=== PATIENT | female | born 1990 | race Native Hawaiian/Other Pacific Islander ===

== ENCOUNTER 2017-10-06 01:50 | Inpatient (IN) | payer OTHER ==
--- NOTE | 2017-10-06 02:55 | PD ---
HPI Chief Complaint Right upper quadrant pain for 24 hours Date Seen: Oct 06, 2017 Time Seen: 02:45 Travel History International Travel<30 Days: No Contact w/Intl Traveler<30Days: No Known Affected Area: No History of Present Illness HPI Patient is 26-year-old Syriac female at 19 weeks gestation who presents with 24 hours of right upper quadrant pain, one episode of nausea and vomiting, denies fever, she has never had this type pain or problem for she has never had her appendix or her gallbladder out. Patient has limited Bolivian but describes the pain as sharp knifelike. There is no vaginal bleeding leakage drainage or lower abdominal pain. heart tones in the 140s Weeks Gestation: 19 Para: 0 : 1 History Social History Alcohol Use: No Tobacco Use: No Substance Abuse: No Review of Systems General / Constitutional: No: Fever, Weight Gain, Chills, Other Eyes: No: Diploplia, Blurred Vision, Visual changes, Pain, Photophobia HENT: No: Headaches, Vertigo, Lightheadedness Cardiovascular: No: Irregular Rhythm, Chest Pain or Discomfort, Palpitations, Tachycardia, Syncope, Varicosities, Edema, Cyanosis Respiratory: No: Cough, Short of Breath, Other Gastrointestinal: Nausea, Vomiting, Abdominal Pain, No: Diarrhea Genitourinary: No: Decreased Urinary Output, Oliguria Musculoskeletal: No: Limited ROM, Weakness, Cramping, Edema, Pain Skin: No Rash, No Itching, No Dryness, No Lumps, No Change in Pigmentation, No Change in Nails, No Alopecia, No Lesions Neurologic: No: Weakness, Dizziness, Syncope, Focal Abnormalities, Coordination Problem, Headache, Slurred Speech, Seizures Psychiatric: No: Depression, Suicidal Ideations, Homicidal Ideation Endocrine: No: Heat Intolerance, Cold Intolerance, Polydipsia, Polyuria, Other Physical Exam Narrative GENERAL: Well-nourished, well-developed patient. SKIN: Warm and dry. HEAD: Normocephalic and atraumatic. EYES: No scleral icterus. No injection or drainage. ENT: No nasal drainage noted. Mucous membranes pink. Airway patent. NECK: Supple, trachea midline. No JVD. CARDIOVASCULAR: Regular rate and rhythm without murmurs, gallops, or rubs. RESPIRATORY: Breath sounds equal bilaterally. No accessory muscle use. BREASTS: Bilateral exam showed no masses , no retractions, no nipple discharge. ABDOMEN/GI: Abdomen soft, -tender in the right upper quadrant, no rebound pain, no pain in the lower quadrants only minimal pain in the left upper quadrant and when U push in the left it hurts on the right,, bowel sounds present , no guarding no distention, positive Key sign Gravid to [19-] weeks size Fundal Height: [At umbilicus-] GENITOURINARY: External Genitalia: intact and normal in appearance BUS glands: [-] Cervix: [Patient cervix is very low in the vagina just inside the introitus about 1 inch or so, but is closed and long[this exam was done by the nurse because patient would not allow man to do a genital exam due to amish concerns-] Dilatation: [-0] Effacement: [Thick-] Station: [-3] Membranes: [intact ] Uterine Contractions: [-none] FHT's: 145 EXTREMITIES: No cyanosis or edema. BACK: Nontender without obvious deformity. No CVA tenderness. NEUROLOGICAL: Awake and alert. Motor and sensory grossly within normal limits. Five out of 5 muscle strength in all muscle groups. Normal speech. Data Data Orders Orders Vital Signs (Adult) .ON ADMISSION (10/06/17 02:44) ^ Labor Status (10/06/17 02:44) ^ Non Stress Test (10/06/17 02:44) Cbc No Diff, Includes Plts (10/06/17 02:44) Comprehensive Metabolic Panel (10/06/17 02:44) Uric Acid (10/06/17 02:44) Us Abdomen Gallbladder (10/06/17 ) Labs Laboratory Tests Test 10/06/17 02:25 White Blood Count 9.6 TH/MM3 Red Blood Count 3.82 MIL/MM3 Hemoglobin 11.5 GM/DL Hematocrit 33.3 % Mean Corpuscular Volume 87.3 FL Mean Corpuscular Hemoglobin 30.0 PG Mean Corpuscular Hemoglobin Concent 34.4 % Red Cell Distribution Width 14.3 % Platelet Count 228 TH/MM3 Mean Platelet Volume 8.3 FL Blood Urea Nitrogen 9 MG/DL Creatinine 0.45 MG/DL Random Glucose 87 MG/DL Total Protein 6.6 GM/DL Albumin 2.6 GM/DL Calcium Level 8.6 MG/DL Uric Acid 4.0 MG/DL Alkaline Phosphatase 133 U/L Aspartate Amino Transf (AST/SGOT) 179 U/L Alanine Aminotransferase (ALT/SGPT) 140 U/L Total Bilirubin 0.4 MG/DL Sodium Level 140 MEQ/L Potassium Level 3.7 MEQ/L Chloride Level 103 MEQ/L Carbon Dioxide Level 26.9 MEQ/L Anion Gap 10 MEQ/L Estimat Glomerular Filtration Rate 167 ML/MIN Urine dip on OB ED is negative MDM Interpretation(s) 26-year-old Syriac female at 19 weeks with right upper quadrant pain, elevated liver transaminases, small gallbladder polyp but no stones seen, no obstetric issues heart tones within normal limits Plan Plan to admit observation, check hepatitis profile , GI consultation later today for right upper quadrant pain and elevated liver enzymes Diagnosis Diagnosis: Primary Impression: Continuous right upper quadrant pain Additional Impressions: Elevated liver enzymes 19 weeks gestation of Patient Instructions: General Instructions Departure Forms: Tests/Procedures Bertin Branch II, MD Oct 06, 2017 02:55
[2017-10-06 03:27] LABS: HEMATOCRIT 33.3 % (35.0-46.0); HEMOGLOBIN 11.5 GM/DL (11.6-15.3); MEAN CELL VOLUME 87.3 FL (80.0-100.0); MEAN CORPUSCULAR HGB CONC 34.4 % (32.0-36.0); MEAN PLATELET VOLUME 8.3 FL (7.0-11.0); PLATELET COUNT 228 TH/MM3 (150-450); RED BLOOD COUNT 3.82 MIL/MM3 (4.00-5.30); RED CELL DISTRIBUTION WIDTH 14.3 % (11.6-17.2); WHITE BLOOD COUNT 9.6 TH/MM3 (4.0-11.0)
[2017-10-06 03:56] LABS: ALBUMIN 2.6 GM/DL (3.4-5.0); ALT (GPT) 140 U/L (10-53); AST (GOT) 179 U/L (15-37); BICARBONATE 26.9 MEQ/L (21.0-32.0); BLOOD UREA NITROGEN 9 MG/DL (7-18); CALCIUM 8.6 MG/DL (8.5-10.1); CHLORIDE 103 MEQ/L (98-107); CREATININE 0.45 MG/DL (0.50-1.00); GLOMERULAR FILTRATION RATE 167 ML/MIN (>89); GLUCOSE,RANDOM 87 MG/DL (74-106); SODIUM (NA) 140 MEQ/L (136-145)
--- NOTE | 2017-10-06 03:57 | RADRPT ---
EXAM DATE/TIME: 10/06/2017 03:17 [facility] COMPARISON: No previous studies available for comparison. INDICATIONS : Right upper quadrant pain, nausea and vomiting. MEDICAL HISTORY : . SURGICAL HISTORY : None. ENCOUNTER: Initial ACUITY: 1 day PAIN SCORE: 4/10 LOCATION: Right upper quadrant MEASUREMENTS: LIVER: 16.1 cm length COMMON DUCT: 5 mm RIGHT KIDNEY: 11.3 x 5.1 x 6.1 cm FINDINGS: LIVER: Normal echotexture without focal lesion or ductal dilatation. COMMON DUCT: No intraluminal mass or stone visualized. GALLBLADDER: Small echogenic focus is seen involving the wall of the globe no roots this measures 1 cm in greatest dimension. No shadowing. PANCREAS: The visualized portions are within normal limits. RIGHT KIDNEY: No evidence of hydronephrosis, stone, or mass. CONCLUSION: 1. Small polyp involving the gallbladder. Curtis Henry Jr., MD on October 06, 2017 at 3:53 Board Certified Radiologist. This report was verified electronically.
[2017-10-06 03:58] LABS: ALKALINE PHOSPHATASE 133 U/L (45-117); TOTAL BILIRUBIN ADULT 0.4 MG/DL (0.2-1.0); TOTAL PROTEIN 6.6 GM/DL (6.4-8.2)
[2017-10-06] MEDS ORDERED: ONDANSETRON HCL 4 MG/2 ML VIAL IV PUSH PRN (04:30)
[2017-10-06] MEDS ORDERED: SODIUM CHLORIDE 0.9% FLUSH 10 ML FLUSH IV FLUSH PRN (04:30)
--- NOTE | 2017-10-06 04:35 | HHI.HP ---
History & Physical H&P OB ED Note (Detail) Patient Name: Ward Mckinney Unit Number: [id number] Date of : 1990 Patient Status: Admitted Inpatient (obs) Attending Doctor: Bertin Branch II, MD HPI HPI Chief Complaint Right upper quadrant pain for 24 hours Date Seen: Oct 06, 2017 Time Seen: 02:45 Travel History International Travel<30 Days: No Contact w/Intl Traveler<30Days: No Known Affected Area: No History of Present Illness HPI Patient is 26-year-old Lithuanian female at 19 weeks gestation who presents with 24 hours of right upper quadrant pain, one episode of nausea and vomiting, denies fever, she has never had this type pain or problem for she has never had her appendix or her gallbladder out. Patient has limited Niuean but describes the pain as sharp knifelike. There is no vaginal bleeding leakage drainage or lower abdominal pain. heart tones in the 140s Weeks Gestation: 19 Para: 0 : 1 History (Limited) History Social History Alcohol Use: No Tobacco Use: No Substance Abuse: No Allergies-Medications Allergies-Medications ROS Review of Systems General / Constitutional: No: Fever, Weight Gain, Chills, Other Eyes: No: Diploplia, Blurred Vision, Visual changes, Pain, Photophobia HENT: No: Headaches, Vertigo, Lightheadedness Cardiovascular: No: Irregular Rhythm, Chest Pain or Discomfort, Palpitations, Tachycardia, Syncope, Varicosities, Edema, Cyanosis Respiratory: No: Cough, Short of Breath, Other Gastrointestinal: Nausea, Vomiting, Abdominal Pain, No: Diarrhea Genitourinary: No: Decreased Urinary Output, Oliguria Musculoskeletal: No: Limited ROM, Weakness, Cramping, Edema, Pain Skin: No Rash, No Itching, No Dryness, No Lumps, No Change in Pigmentation, No Change in Nails, No Alopecia, No Lesions Neurologic: No: Weakness, Dizziness, Syncope, Focal Abnormalities, Coordination Problem, Headache, Slurred Speech, Seizures Psychiatric: No: Depression, Suicidal Ideations, Homicidal Ideation Endocrine: No: Heat Intolerance, Cold Intolerance, Polydipsia, Polyuria, Other Physical Exam Physical Exam Narrative GENERAL: Well-nourished, well-developed patient. SKIN: Warm and dry. HEAD: Normocephalic and atraumatic. EYES: No scleral icterus. No injection or drainage. ENT: No nasal drainage noted. Mucous membranes pink. Airway patent. NECK: Supple, trachea midline. No JVD. CARDIOVASCULAR: Regular rate and rhythm without murmurs, gallops, or rubs. RESPIRATORY: Breath sounds equal bilaterally. No accessory muscle use. BREASTS: Bilateral exam showed no masses , no retractions, no nipple discharge. ABDOMEN/GI: Abdomen soft, -tender in the right upper quadrant, no rebound pain, no pain in the lower quadrants only minimal pain in the left upper quadrant and when U push in the left it hurts on the right,, bowel sounds present , no guarding no distention, positive Key sign Gravid to [19-] weeks size Fundal Height: [At umbilicus-] GENITOURINARY: External Genitalia: intact and normal in appearance BUS glands: [-] Cervix: [Patient cervix is very low in the vagina just inside the introitus about 1 inch or so, but is closed and long[this exam was done by the nurse because patient would not allow man to do a genital exam due to zoroastrian concerns-] Dilatation: [-0] Effacement: [Thick-] Station: [-3] Membranes: [intact ] Uterine Contractions: [-none] FHT's: 145 EXTREMITIES: No cyanosis or edema. BACK: Nontender without obvious deformity. No CVA tenderness. NEUROLOGICAL: Awake and alert. Motor and sensory grossly within normal limits. Five out of 5 muscle strength in all muscle groups. Normal speech. Data Data Data Orders Orders Vital Signs (Adult) .ON ADMISSION (10/06/17 02:44) ^ Labor Status (10/06/17 02:44) ^ Non Stress Test (10/06/17 02:44) Cbc No Diff, Includes Plts (10/06/17 02:44) Comprehensive Metabolic Panel (10/06/17 02:44) Uric Acid (10/06/17 02:44) Us Abdomen Gallbladder (10/06/17 ) Labs Laboratory Tests Test 10/06/17 02:25 White Blood Count 9.6 TH/MM3 Red Blood Count 3.82 MIL/MM3 Hemoglobin 11.5 GM/DL Hematocrit 33.3 % Mean Corpuscular Volume 87.3 FL Mean Corpuscular Hemoglobin 30.0 PG Mean Corpuscular Hemoglobin Concent 34.4 % Red Cell Distribution Width 14.3 % Platelet Count 228 TH/MM3 Mean Platelet Volume 8.3 FL Blood Urea Nitrogen 9 MG/DL Creatinine 0.45 MG/DL Random Glucose 87 MG/DL Total Protein 6.6 GM/DL Albumin 2.6 GM/DL Calcium Level 8.6 MG/DL Uric Acid 4.0 MG/DL Alkaline Phosphatase 133 U/L Aspartate Amino Transf (AST/SGOT) 179 U/L Alanine Aminotransferase (ALT/SGPT) 140 U/L Total Bilirubin 0.4 MG/DL Sodium Level 140 MEQ/L Potassium Level 3.7 MEQ/L Chloride Level 103 MEQ/L Carbon Dioxide Level 26.9 MEQ/L Anion Gap 10 MEQ/L Estimat Glomerular Filtration Rate 167 ML/MIN Urine dip on OB ED is negative MDM MDM Interpretation(s) 26-year-old Lithuanian female at 19 weeks with right upper quadrant pain, elevated liver transaminases, small gallbladder polyp but no stones seen, no obstetric issues heart tones within normal limits Plan Plan to admit observation, check hepatitis profile , GI consultation later today for right upper quadrant pain and elevated liver enzymes Diagnosis Diagnosis: Primary Impression: Continuous right upper quadrant pain Additional Impressions: Elevated liver enzymes 19 weeks gestation of Patient Instructions: General Instructions Departure Forms: Tests/Procedures Bertin Branch II, MD Oct 06, 2017 02:55 Bertin Branch II, MD Oct 06, 2017 04:35
[2017-10-06] MEDS: cefTRIAXone INJ 1,000 MG in SODIUM CHLORIDE 0.9% INJ 100 ML IV SCH (05:02)
[2017-10-06 05:04] VITALS: RESP 18
[2017-10-06 06:15] VITALS: RESP 16
[2017-10-06] MEDS: SODIUM CHLORIDE 0.9% FLUSH 10 ML FLUSH IV FLUSH SCH ×2 (09:00→21:00)
[2017-10-06 09:05] VITALS: BP 94/58; PULSE 81
[2017-10-06 09:17] VITALS: RESP 16; TEMP 98
[2017-10-06] MEDS ORDERED: DEXTROSE 5%-LACTATED RING INJ 1,000 ML IV SCH (11:45)
--- NOTE | 2017-10-06 14:15 | PD.CONS ---
HPI History of Present Illness This is a 26 year old F with no significant PMH, who is currently 19 weeks gestation, first . Pt came to the ER yesterday with complaints of RUQ abdominal pain that she states came on suddenly. Pt describes pain as sharp and states it is fairly constant. Pain was worse throughout the night and she was unable to sleep. Denies pain in relation to food. Had one isolated episode of nausea with emesis yesterday, denies any nausea at this time. Denies hematemesis and coffee ground emesis. Has never seen a GI doctor, denies ever having EGD or colonoscopy. Currently LFTs are elevated, our service has been consulted to further evaluate. Pt denies history of liver issues, denies taking OTC medications including Tylenol, denies taking herbal supplements. Denies ETOH prior to and illicit drug use. Denies family history of liver issues. Denies sick contacts, fever, chills. US gallbladder --> Small polyp involving the gallbladder. Current LFTs AST-179 ALT-140 Alk phos-133 T bili-0.4. (Radha Jack) PFSH Past Medical History Denies (Radha Jack) Uncoded Allergies: no known allergy (Allergy, Unknown, 10/06/17) Social History Denies ETOH Denies smoking Denies illicit drug use (Radha Jack) Review of Systems Gastrointestinal: COMPLAINS OF: Abdominal pain, Constipation, Nausea, Vomiting , DENIES: Black stools, Bloody stools, Diarrhea, Difficulty Swallowing, Odynophagia, Swelling of Abdomen, Heartburn, Hematemesis (Radha Jack) GI Exam Vitals I&O Vital Signs Date Time Temp Pulse Resp B/P (MAP) Pulse Ox O2 Delivery O2 Flow Rate FiO2 10/06/17 09:17 98.0 16 10/06/17 09:05 81 94/58 (70) 10/06/17 06:15 16 10/06/17 05:04 18 Imaging Last Impressions Gall Bladder Ultrasound 10/06/17 0000 Signed Impressions: Service Date/Time: September 03:17 - CONCLUSION: 1. Small polyp involving the gallbladder. Curtis Henry Jr., MD Laboratory Test 10/06/17 02:05 3/15/18 02:25 10/06/17 04:35 Urine Opiates Screen NEG Urine Barbiturates Screen NEG Urine Amphetamines Screen NEG Urine Benzodiazepines Screen NEG Urine Cocaine Screen NEG Urine Cannabinoids Screen NEG White Blood Count 9.6 TH/MM3 Red Blood Count 3.82 MIL/MM3 Hemoglobin 11.5 GM/DL Hematocrit 33.3 % Mean Corpuscular Volume 87.3 FL Mean Corpuscular Hemoglobin 30.0 PG Mean Corpuscular Hemoglobin Concent 34.4 % Red Cell Distribution Width 14.3 % Platelet Count 228 TH/MM3 Mean Platelet Volume 8.3 FL Blood Urea Nitrogen 9 MG/DL Creatinine 0.45 MG/DL Random Glucose 87 MG/DL Total Protein 6.6 GM/DL Albumin 2.6 GM/DL Calcium Level 8.6 MG/DL Uric Acid 4.0 MG/DL Alkaline Phosphatase 133 U/L Aspartate Amino Transf (AST/SGOT) 179 U/L Alanine Aminotransferase (ALT/SGPT) 140 U/L Total Bilirubin 0.4 MG/DL Sodium Level 140 MEQ/L Potassium Level 3.7 MEQ/L Chloride Level 103 MEQ/L Carbon Dioxide Level 26.9 MEQ/L Anion Gap 10 MEQ/L Estimat Glomerular Filtration Rate 167 ML/MIN Hepatitis A IgM Antibody NONREACTIVE Hepatitis B Surface Antigen NONREACTIVE Physical Examination HEENT: Normocephalic; atraumatic CHEST: Even/unlabored CARDIAC: RRR ABDOMEN: Soft, nondistended, right sided abdominal tenderness at level of umbilicus, bowel sounds active EXTREMITIES: No clubbing, cyanosis, or edema. SKIN: Normal; no rash; no jaundice. CLIPPER AUTOMATIC: No focal deficits; alert and oriented times three. (Radha Jack) Assessment and Plan Plan Assessment: - Transaminitis- Current LFTs as follows AST-179 ALT-140 Alk phos-133 T bili-0.4 Pt denies history of liver issues, family history of liver issues, ETOH prior to , OTC medication and supplements including Tylenol, illicit drug use, sick contacts, fever, chills, high risk sexual behaviors. - RUQ pain- negative Key's- pain more right sided abdomen at level of umbilicus. US gallbladder --> Small polyp involving the gallbladder - 19 weeks gestation- denies complications in Pt will likely need cholecystectomy after delivery. Plan: KARLENE ASMA AMA Hepatitis panel Ceruloplasmin Alpha-1 antitrypsin Celiac control panel tester LFTs Further recommendations based on findings of above Pt has been seen and examined by myself and Dr. Stephens and this note is written on his behalf (Radha Jack) Physician Comments Agree with above assessment and plan. Will follow up with you. Thank you. (Melquiades Stephens MD) Radha Jack Oct 06, 2017 14:15 Melquiades Stephens MD Oct 06, 2017 21:14
[2017-10-06 15:31] LABS: % SATURATION IRON PROFILE 11.7 % (20-50); IRON (FE) 41 MCG/DL (50-170); TOTAL IRON BINDING CAPACITY 350 MCG/DL (250-450)
[2017-10-06 15:34] LABS: FERRITIN 55 NG/ML (8-252)
[2017-10-06 19:56] VITALS: BP 103/54; PULSE 92
[2017-10-06 20:00] VITALS: RESP 18; TEMP 98.1
[2017-10-07] MEDS: cefTRIAXone INJ 1,000 MG in SODIUM CHLORIDE 0.9% INJ 100 ML IV SCH (04:30)
[2017-10-07 05:16] VITALS: BP 89/52; PULSE 80
[2017-10-07 05:24] VITALS: RESP 18; TEMP 98.2
[2017-10-07 06:26] LABS: AUTOMATED NEUTROPHIL # 4.5 TH/MM3 (1.8-7.7); BASOPHIL % 0.3 % (0.0-2.0); EOSINOPHIL # 0.2 TH/MM3 (0-0.4); EOSINOPHIL % 2.4 % (0.0-4.0); HEMATOCRIT 30.4 % (35.0-46.0); HEMOGLOBIN 10.4 GM/DL (11.6-15.3); LYMPHOCYTE # 1.9 TH/MM3 (1.0-4.8); MEAN CELL VOLUME 88.6 FL (80.0-100.0); MEAN CORPUSCULAR HEMOGLOBIN 30.2 PG (27.0-34.0); MEAN CORPUSCULAR HGB CONC 34.1 % (32.0-36.0); MEAN PLATELET VOLUME 8.1 FL (7.0-11.0); MONO % 6.7 % (0.0-8.0); MONOCYTE # 0.5 TH/MM3 (0-0.9); NEUT % 63.6 % (16.0-70.0); PLATELET COUNT 209 TH/MM3 (150-450); RED BLOOD COUNT 3.43 MIL/MM3 (4.00-5.30); RED CELL DISTRIBUTION WIDTH 14.1 % (11.6-17.2)
[2017-10-07 06:52] LABS: ALBUMIN 2.2 GM/DL (3.4-5.0); ALT (GPT) 120 U/L (10-53); AST (GOT) 60 U/L (15-37); BLOOD UREA NITROGEN 6 MG/DL (7-18); CALCIUM 8.1 MG/DL (8.5-10.1); CHLORIDE 106 MEQ/L (98-107); CREATININE 0.41 MG/DL (0.50-1.00); GLOMERULAR FILTRATION RATE 186 ML/MIN (>89); GLUCOSE,RANDOM 83 MG/DL (74-106); SODIUM (NA) 139 MEQ/L (136-145)
[2017-10-07 06:54] LABS: ALKALINE PHOSPHATASE 106 U/L (45-117); TOTAL BILIRUBIN ADULT 0.2 MG/DL (0.2-1.0); TOTAL PROTEIN 5.8 GM/DL (6.4-8.2)
[2017-10-07 07:57] VITALS: BP 93/53; PULSE 81
[2017-10-07 08:00] VITALS: RESP 16; TEMP 97.8
--- NOTE | 2017-10-07 09:20 | HHI.GIFU ---
Subjective Remarks Sitting on side of the bed at her bedside Awake alert answers questions appropriately States abdominal pain is feeling better, Afebrile (Nicole Wright) Objective Vitals I&O Vital Signs Date Time Temp Pulse Resp B/P (MAP) Pulse Ox O2 Delivery O2 Flow Rate FiO2 10/07/17 08:00 97.8 16 10/07/17 07:57 81 93/53 (66) 10/07/17 05:24 18 10/07/17 05:24 98.2 10/07/17 05:16 80 89/52 (64) 10/06/17 20:00 98.1 18 10/06/17 19:56 92 103/54 (70) 10/06/17 09:17 98.0 16 Laboratory Laboratory Tests Test 10/06/17 16:08 10/07/17 06:05 White Blood Count 7.0 Red Blood Count 3.43 Hemoglobin 10.4 Hematocrit 30.4 Mean Corpuscular Volume 88.6 Mean Corpuscular Hemoglobin 30.2 Mean Corpuscular Hemoglobin Concent 34.1 Red Cell Distribution Width 14.1 Platelet Count 209 Mean Platelet Volume 8.1 Neutrophils (%) (Auto) 63.6 Lymphocytes (%) (Auto) 27.0 Monocytes (%) (Auto) 6.7 Eosinophils (%) (Auto) 2.4 Basophils (%) (Auto) 0.3 Neutrophils # (Auto) 4.5 Lymphocytes # (Auto) 1.9 Monocytes # (Auto) 0.5 Eosinophils # (Auto) 0.2 Basophils # (Auto) 0.0 CBC Comment DIFF FINAL Differential Comment Blood Urea Nitrogen 6 Creatinine 0.41 Random Glucose 83 Total Protein 5.8 Albumin 2.2 Calcium Level 8.1 Alkaline Phosphatase 106 Aspartate Amino Transf (AST/SGOT) 60 Alanine Aminotransferase (ALT/SGPT) 120 Total Bilirubin 0.2 Sodium Level 139 Potassium Level 3.6 Chloride Level 106 Carbon Dioxide Level 24.0 Anion Gap 9 Estimat Glomerular Filtration Rate 186 Imaging Last Impressions Gall Bladder Ultrasound 10/06/17 0000 Signed Impressions: Service Date/Time: September 03:17 - CONCLUSION: 1. Small polyp involving the gallbladder. Curtis Henry Jr., MD Physical Exam HEENT: Pupils round and reactive to light; normocephalic; atraumatic; no obvious icterus NECK: Neck is supple, CHEST: Chest is clear out rhonchi or wheezing CARDIAC: Regular rate and rhythm ABDOMEN: Soft, nondistended, minimal right upper quadrant and gastric tenderness; no hepatosplenomegaly; bowel sounds are present in all four quadrants. EXTREMITIES: No clubbing, cyanosis, or edema. SKIN: Normal; no rash; no jaundice. EXPERIENCE SPECIALIST: No focal deficits; alert and oriented times three. (Nicole Wright) Assessment and Plan Plan Assessment: - Transaminitis- Current LFTs as follows AST-179 ALT-140 Alk phos-133 T bili-0.4 Pt denies history of liver issues, family history of liver issues, ETOH prior to , OTC medication and supplements including Tylenol, illicit drug use, sick contacts, fever, chills, high risk sexual behaviors. - RUQ pain- negative Key's- pain more right sided abdomen at level of umbilicus. US gallbladder --> Small polyp involving the gallbladder - 19 weeks gestation- denies complications in Consider cholecystectomy after delivery if symptoms can be controlled 10/07/17. LFTs decreased, AST 60, ALT 120, alkaline phosphatase back to normal range 106, hemoglobin 10.4. Abdominal pain right upper quadrant and gastric region improved still some minimal soreness. Discussed the monitoring of her symptoms, polyp found in her gallbladder. If symptoms persist will need to follow as outpatient Plan: Monitor anemia possible secondary to patient's Monitor labs LFTs patient's symptoms of right upper quadrant pain nausea, vomiting KARLENE, ASMA, AMA pending Hepatitis panel negative Ceruloplasmin pending Alpha-1 antitrypsin pending Celiac panel pending Further recommendations based on findings of above Pt has been seen and examined by myself and Dr. Stephens and this note is written on his behalf (Nicole Wright) Physician Comments As above, stable at the current time. Agree with DC and follow up in the office. (Melquiades Stephens MD) Nicole Wright Oct 07, 2017 09:20 Melquiades Stephens MD Oct 07, 2017 11:15
--- NOTE | 2017-10-07 10:05 | PD.OB.ANTE ---
Subjective Interval History Patient sitting at the side of bed. Abdominal pain is much better. She has been afebrile overnight. Has eaten food without issues. Would like to go home. Antepartum ROS: Reports: movement normal, Denies: Loss of fluid, Vaginal bleeding, Contractions Objective Vital Signs Vital Signs Date Time Temp Pulse Resp B/P (MAP) Pulse Ox O2 Delivery O2 Flow Rate FiO2 10/07/17 08:00 97.8 16 10/07/17 07:57 81 93/53 (66) 10/07/17 05:24 18 10/07/17 05:24 98.2 10/07/17 05:16 80 89/52 (64) 10/06/17 20:00 98.1 18 10/06/17 19:56 92 103/54 (70) Lab & Micro Results Test 10/06/17 16:08 10/07/17 06:05 White Blood Count 7.0 TH/MM3 Red Blood Count 3.43 MIL/MM3 Hemoglobin 10.4 GM/DL Hematocrit 30.4 % Mean Corpuscular Volume 88.6 FL Mean Corpuscular Hemoglobin 30.2 PG Mean Corpuscular Hemoglobin Concent 34.1 % Red Cell Distribution Width 14.1 % Platelet Count 209 TH/MM3 Mean Platelet Volume 8.1 FL Neutrophils (%) (Auto) 63.6 % Lymphocytes (%) (Auto) 27.0 % Monocytes (%) (Auto) 6.7 % Eosinophils (%) (Auto) 2.4 % Basophils (%) (Auto) 0.3 % Neutrophils # (Auto) 4.5 TH/MM3 Lymphocytes # (Auto) 1.9 TH/MM3 Monocytes # (Auto) 0.5 TH/MM3 Eosinophils # (Auto) 0.2 TH/MM3 Basophils # (Auto) 0.0 TH/MM3 CBC Comment DIFF FINAL Differential Comment Blood Urea Nitrogen 6 MG/DL Creatinine 0.41 MG/DL Random Glucose 83 MG/DL Total Protein 5.8 GM/DL Albumin 2.2 GM/DL Calcium Level 8.1 MG/DL Alkaline Phosphatase 106 U/L Aspartate Amino Transf (AST/SGOT) 60 U/L Alanine Aminotransferase (ALT/SGPT) 120 U/L Total Bilirubin 0.2 MG/DL Sodium Level 139 MEQ/L Potassium Level 3.6 MEQ/L Chloride Level 106 MEQ/L Carbon Dioxide Level 24.0 MEQ/L Anion Gap 9 MEQ/L Estimat Glomerular Filtration Rate 186 ML/MIN Physical Exam GENERAL: Well-nourished, well-developed patient. CARDIOVASCULAR: Regular rate and rhythm without murmurs, gallops, or rubs. RESPIRATORY: Breath sounds equal bilaterally. No accessory muscle use. ABDOMEN/GI: Abdomen soft, non-tender. EXTREMITIES: No cyanosis or edema, non-tender, without signs of DVT. Assessment and Plan Problem List: (1) 19 weeks gestation of ICD Codes: Z3A.19 - 19 weeks gestation of Status: Acute (2) Right upper quadrant abdominal pain ICD Codes: R10.11 - Right upper quadrant pain (3) Elevated liver enzymes ICD Codes: R74.8 - Abnormal levels of other serum enzymes Status: Acute Assessment and Plan 26-year-old Occitan female at 19 weeks gestation presented with 24 hours of right upper quadrant pain, one episode of nausea and vomiting, and elevated liver enzymes. 1. IUP -FHTs reassuring in the 140's this am -Continue routine care -Discussed with patient and significant other about the [facility] 2. RUQ Abdominal Pain -Resolved - able to eat and drink without pain, nausea, or vomiting -Hepatitis panel negative -GI on board -Specialized labs pending -Patient to follow up with GI as an outpatient in 2-4 weeks 3. Elevated Transaminases -AST/ALT decreased from 179/140 on 10/06/17 to 60/120 on 10/07/17 -Discussed staying adequately hydrated Plan to discharge home today Seen and examined with Dr. Solomon and Charlene Marshall MD Oct 07, 2017 10:05
--- NOTE | 2017-10-07 10:33 | HHI.DCPOC ---
Discharge Care Plan Diagnosis: (1) Elevated liver enzymes (2) 19 weeks gestation of (3) Right upper quadrant abdominal pain Report Symptoms to Your Doctor -Temperature above 100.5 degrees -Redness, of incision or excessive or foul smelling drainage -Unusual pain or calf pain -Increased vaginal bleeding -Painful or difficulty urinating -Feelings of extreme sadness or anxiety after 2 weeks Goals to Promote Your Health * To prevent worsening of your condition and complications * To maintain your health at the optimal level Directions to Meet Your Goals Take your medications as prescribed Follow your dietary instruction Follow activity as directed Ensure plenty of rest for recovery Drink fluids for hydration Keep your appointments as scheduled Take your immunizations and boosters as scheduled If your symptoms worsen call your PCP, if no PCP go to Urgent Care Center or Emergency Room Smoking is Dangerous to Your Health. Avoid second hand smoke Call the 24-hour crisis hotline for domestic abuse at Charlene Diaz MD Oct 07, 2017 10:33
[2017-10-08 13:13] LABS: ALPHA-1-ANTITRYPSIN 185 mg/dL (100 - 190)
[2017-10-08 14:08] LABS: SMOOTH MUSCLE TOTAL AUTOABS Negative (Negative)
[2017-10-09 17:52] LABS: CERULOPLASMIN 49 mg/dL (18-53)
[2017-10-10 15:53] LABS: ENDOMYSIAL AB SCREEN ND (NEGATIVE); ENDOMYSIAL AB TITER ND (<1:5)
[2017-10-11 23:53] LABS: MITOCHONDRIAL ABS LESS THAN 20.0 U (<=20.0)
== END 2017-10-07 11:02 | disposition home or self-care (01) | DRG 781 ==
LOC: HOBED 01:50 → INTOOBSV 04:15 → OBSVTOIN 04:15 → H2EA 04:15 → OBSVTOIN 15:13
PROVIDERS: ADMIT Obstetrics & Gynecology Maternal & Fetal Medicine; ATTEND Obstetrics & Gynecology Maternal & Fetal Medicine
DX: O26.892 Other specified pregnancy related conditions, second trimester (principal); D64.9 Anemia, unspecified; R10.11 Right upper quadrant pain; R74.8 Abnormal levels of other serum enzymes; K82.4 Cholesterolosis of gallbladder; O99.012 Anemia complicating pregnancy, second trimester; R74.0 Nonspecific elevation of levels of transaminase and lactic acid dehydrogenase [LDH]; Z3A.19 19 weeks gestation of pregnancy
CPT/HCPCS: 76705; 80053; 80074; 80307; 82103; 82390; 82728; 82784; 83516; 83520; 83540; 83550; 83690; 84550; 85025; 85027; 86038; 86255; G0481; J0696

== ENCOUNTER 2017-10-10 00:32 | Observation (INO) | payer OTHER ==
[2017-10-10] VITALS (13 sets, daily range): BP systolic 89–102; BP diastolic 43–56; PULSE 18–77; RESP 16–18; TEMP 97.9–98.7
[~2017-10-10] VITALS: Ht 165.1 cm; Wt 82.0 kg
--- NOTE | 2017-10-10 01:58 | HHI.HP ---
History & Physical H&P Patient Name: Ward Mckinney Unit Number: [id number] Date of : 1990 Patient Status: Discharged Inpatient (obs) Attending Doctor: Bertin Branch II, MD History & Physical History & Physical H&P OB ED Note (Detail) Patient Name: Ward Mckinney Unit Number: [id number] Date of : 1990 Patient Status: Admitted Inpatient (obs) Attending Doctor: Bertin Branch II, MD HPI HPI Chief Complaint Right upper quadrant pain for 24 hours Date Seen: Oct 06, 2017 Time Seen: 02:45 Travel History International Travel<30 Days: No Contact w/Intl Traveler<30Days: No Known Affected Area: No History of Present Illness HPI Patient is 26-year-old French female at 20 weeks gestation who presents with 24 hours of right upper quadrant pain, patient was here 4 days ago was admitted seen by GI who katharina a bunch of lab. Hepatitis profile negative, her transaminases were elevated on admission and then went down the next day, she had a gallbladder polyp small otherwise nothing else seen their assessment was transaminitis and consider cholecystectomy after delivery of symptoms can be controlled unfortunately her symptoms are not controlled she is returned tonight with worsening right upper quadrant pain, denies fever, she has never had this type pain or problem for she has never had her appendix or her gallbladder out. Patient has limited Upper Sorbian but describes the pain as sharp knifelike. There is no vaginal bleeding leakage drainage or lower abdominal pain. heart tones in the 140s Weeks Gestation: 19 Para: 0 : 1 History (Limited) History Social History Alcohol Use: No Tobacco Use: No Substance Abuse: No Allergies-Medications Allergies-Medications ROS Review of Systems General / Constitutional: No: Fever, Weight Gain, Chills, Other Eyes: No: Diploplia, Blurred Vision, Visual changes, Pain, Photophobia HENT: No: Headaches, Vertigo, Lightheadedness Cardiovascular: No: Irregular Rhythm, Chest Pain or Discomfort, Palpitations, Tachycardia, Syncope, Varicosities, Edema, Cyanosis Respiratory: No: Cough, Short of Breath, Other Gastrointestinal: Nausea, Vomiting, Abdominal Pain, No: Diarrhea Genitourinary: No: Decreased Urinary Output, Oliguria Musculoskeletal: No: Limited ROM, Weakness, Cramping, Edema, Pain Skin: No Rash, No Itching, No Dryness, No Lumps, No Change in Pigmentation, No Change in Nails, No Alopecia, No Lesions Neurologic: No: Weakness, Dizziness, Syncope, Focal Abnormalities, Coordination Problem, Headache, Slurred Speech, Seizures Psychiatric: No: Depression, Suicidal Ideations, Homicidal Ideation Endocrine: No: Heat Intolerance, Cold Intolerance, Polydipsia, Polyuria, Other Physical Exam Physical Exam Narrative GENERAL: Well-nourished, well-developed patient. SKIN: Warm and dry. HEAD: Normocephalic and atraumatic. EYES: No scleral icterus. No injection or drainage. ENT: No nasal drainage noted. Mucous membranes pink. Airway patent. NECK: Supple, trachea midline. No JVD. CARDIOVASCULAR: Regular rate and rhythm without murmurs, gallops, or rubs. RESPIRATORY: Breath sounds equal bilaterally. No accessory muscle use. BREASTS: Bilateral exam showed no masses , no retractions, no nipple discharge. ABDOMEN/GI: Abdomen soft, -tender in the right upper quadrant, no rebound pain, no pain in the lower quadrants only minimal pain in the left upper quadrant and when U push in the left it hurts on the right,, bowel sounds present , no guarding no distention, positive Key sign Gravid to [19-] weeks size Fundal Height: [At umbilicus-] GENITOURINARY: External Genitalia: intact and normal in appearance BUS glands: [-] Cervix: [Patient cervix is very low in the vagina just inside the introitus about 1 inch or so, but is closed and long[this exam was done by the nurse because patient would not allow man to do a genital exam due to jehovah's witness concerns-] Dilatation: [-0] Effacement: [Thick-] Station: [-3] Membranes: [intact ] Uterine Contractions: [-none] FHT's: 145 EXTREMITIES: No cyanosis or edema. BACK: Nontender without obvious deformity. No CVA tenderness. NEUROLOGICAL: Awake and alert. Motor and sensory grossly within normal limits. Five out of 5 muscle strength in all muscle groups. Normal speech. Data Data Data Orders Orders Vital Signs (Adult) .ON ADMISSION (10/06/17 02:44) ^ Labor Status (10/06/17 02:44) ^ Non Stress Test (10/06/17 02:44) Cbc No Diff, Includes Plts (10/06/17 02:44) Comprehensive Metabolic Panel (10/06/17 02:44) Uric Acid (10/06/17 02:44) Us Abdomen Gallbladder (10/06/17 ) Labs Labo MDM MDM Interpretation(s) 26-year-old French female at 20 weeks with right upper quadrant pain, elevated liver transaminases, small gallbladder polyp but no stones seen, no obstetric issues heart tones within normal limits Plan Plan to admit observation, , GI consultation later today for right upper quadrant pain and elevated liver enzymes Diagnosis Diagnosis: Primary Impression: Continuous right upper quadrant pain Additional Impressions: Elevated liver enzymes 20 weeks gestation of Patient Instructions: General Instructions Departure Forms: Tests/Procedures Bertin Branch II, MD Oct 10, 2017 02:55 Bertin Branch II, MD Oct 06, 2017 04:35 Bertin Branch II, MD Oct 10, 2017 01:58
[2017-10-10] MEDS ORDERED: SODIUM CHLORIDE 0.9% FLUSH 10 ML FLUSH IV FLUSH PRN (02:00)
[2017-10-10] MEDS ORDERED: ONDANSETRON HCL 4 MG/2 ML VIAL IV PUSH PRN (02:00)
[2017-10-10] MEDS ORDERED: MORPHINE SULFATE 4 MG/ML INJ IV PUSH PRN (02:15)
[2017-10-10] MEDS: SODIUM CHLORIDE 0.9% FLUSH 10 ML FLUSH IV FLUSH SCH ×2 (02:18→21:00)
[2017-10-10 02:28] LABS: AUTOMATED NEUTROPHIL # 6.4 TH/MM3 (1.8-7.7); BASOPHIL % 0.3 % (0.0-2.0); EOSINOPHIL # 0.1 TH/MM3 (0-0.4); HEMATOCRIT 31.7 % (35.0-46.0); HEMOGLOBIN 10.8 GM/DL (11.6-15.3); LYMPH % 18.9 % (9.0-44.0); LYMPHOCYTE # 1.7 TH/MM3 (1.0-4.8); MEAN CELL VOLUME 88.5 FL (80.0-100.0); MEAN CORPUSCULAR HEMOGLOBIN 30.2 PG (27.0-34.0); MEAN CORPUSCULAR HGB CONC 34.1 % (32.0-36.0); MEAN PLATELET VOLUME 8.7 FL (7.0-11.0); MONO % 8.4 % (0.0-8.0); MONOCYTE # 0.8 TH/MM3 (0-0.9); NEUT % 71.4 % (16.0-70.0); PLATELET COUNT 229 TH/MM3 (150-450); RED BLOOD COUNT 3.58 MIL/MM3 (4.00-5.30); RED CELL DISTRIBUTION WIDTH 13.6 % (11.6-17.2); WHITE BLOOD COUNT 8.9 TH/MM3 (4.0-11.0)
[2017-10-10 02:46] LABS: BACTERIA, URINE RARE /hpf; BILIRUBIN, URINE NEG (NEG); BLOOD, URINE NEG (NEG); CALCIUM OXALATE CRYSTALS,URINE RARE /hpf; GLUCOSE,URINE NEG (NEG); KETONE, URINE NEG (NEG); MUCUS URINE FEW /lpf (OCC); NITRITE,URINE NEG (NEG); SQUAMOUS EPITHELIAL CELL URINE 3 /hpf (0-5); URINE COLOR DARK-YELLOW (YELLW/STRAW); URINE LEUKOCYTE ESTERASE NEG (NEG)
[2017-10-10 02:47] LABS: ALBUMIN 2.6 GM/DL (3.4-5.0); AST (GOT) 111 U/L (15-37); BICARBONATE 24.8 MEQ/L (21.0-32.0); BLOOD UREA NITROGEN 7 MG/DL (7-18); CALCIUM 8.6 MG/DL (8.5-10.1); CHLORIDE 104 MEQ/L (98-107); CREATININE 0.55 MG/DL (0.50-1.00); GLOMERULAR FILTRATION RATE 133 ML/MIN (>89); GLUCOSE,RANDOM 96 MG/DL (74-106); SODIUM (NA) 138 MEQ/L (136-145)
[2017-10-10 02:50] LABS: ALKALINE PHOSPHATASE 121 U/L (45-117); ALT (GPT) 106 U/L (10-53); TOTAL BILIRUBIN ADULT 0.4 MG/DL (0.2-1.0); TOTAL PROTEIN 6.7 GM/DL (6.4-8.2)
[2017-10-10] MEDS: LACTATED RINGER'S 1000 ML INJ 1,000 ML IV SCH ×3 (09:48→21:10)
--- NOTE | 2017-10-10 11:23 | RADRPT ---
EXAM DATE/TIME: 10/10/2017 10:23 [facility] COMPARISON: No previous studies available for comparison. INDICATIONS : Right upper quadrant pain. MEDICAL HISTORY : . SURGICAL HISTORY : None. ENCOUNTER: Initial ACUITY: 2 days PAIN SCORE: 2/10 LOCATION: Right upper quadrant MEASUREMENTS: LIVER: 14.8 cm length COMMON DUCT: 3 mm RIGHT KIDNEY: 12.0 x 5.0 x 5.0 cm FINDINGS: LIVER: Normal echotexture without focal lesion or ductal dilatation. COMMON DUCT: No intraluminal mass or stone visualized. GALLBLADDER: There is a 7 mm echogenic wall adherent focus involving the upper body of the gallbladder which has t he appearance of a small polyp. No mobile stones. No wall thickening or pericholecystic fluid. PANCREAS: The visualized portions are within normal limits. RIGHT KIDNEY: No evidence of hydronephrosis, stone, or mass. CONCLUSION: Gallbladder polyp. Spike Delgado MD on October 10, 2017 at 11:20 Board Certified Radiologist. This report was verified electronically.
--- NOTE | 2017-10-10 11:35 | PD.CONS ---
HPI History of Present Illness This is a 26 year old female 20 weeks who presented with RUQ pain. She has been having intermittent RUQ pain. The first episode was 1 week ago. This recent episode started suddenly yesterday. Pain comes and goes. Pain is sharp and radiates to shoulder. Pain is 7/10. No exacerbating factors. Denies n/v, diarrhea, change in stool color, change in urine. No fevers. NO weight loss. No change in appetite. No recent travel. She is from [facility] but has been in [place] 2 [place]. SHe reports her mother had cirrhosis that was attributed to a complication from diabetes. She was evaluated by our service and discharged 10/07/17. She had a liver w/u that was negative. (Esther Moore) PFSH Past Medical History none Past Surgical History none (Esther Moore) Coded Allergies: No Known Allergies (Unverified , 10/10/17) Uncoded Allergies: no known allergy (Allergy, Unknown, 10/06/17) Family History cirrhosis - mother, unk etiology Social History denies toxic habits (Esther Moore) Review of Systems Constitutional: DENIES: Fever Endocrine: DENIES: Polydipsia Eyes: DENIES: Blurred vision Ears, nose, mouth, throat: DENIES: Hearing loss Respiratory: DENIES: Cough Cardiovascular: DENIES: Chest pain Gastrointestinal: COMPLAINS OF: Abdominal pain, DENIES: Black stools, Bloody stools, Nausea, Vomiting, Hematemesis Genitourinary: DENIES: Hematuria Musculoskeletal: DENIES: Muscle aches Integumentary: DENIES: Abnormal pigmentation Hematologic/lymphatic: DENIES: Bruising Immunologic/allergic: DENIES: Eczema Neurologic: DENIES: Abnormal gait Psychiatric: DENIES: Confusion (Esther Moore) GI Exam Vitals I&O Vital Signs Date Time Temp Pulse Resp B/P (MAP) Pulse Ox O2 Delivery O2 Flow Rate FiO2 10/10/17 07:41 97.9 10/10/17 07:21 68 95/45 (62) 10/10/17 06:22 18 10/10/17 04:50 16 10/10/17 02:20 77 18 102/56 (71) Laboratory Test 10/10/17 01:30 White Blood Count 8.9 TH/MM3 Red Blood Count 3.58 MIL/MM3 Hemoglobin 10.8 GM/DL Hematocrit 31.7 % Mean Corpuscular Volume 88.5 FL Mean Corpuscular Hemoglobin 30.2 PG Mean Corpuscular Hemoglobin Concent 34.1 % Red Cell Distribution Width 13.6 % Platelet Count 229 TH/MM3 Mean Platelet Volume 8.7 FL Neutrophils (%) (Auto) 71.4 % Lymphocytes (%) (Auto) 18.9 % Monocytes (%) (Auto) 8.4 % Eosinophils (%) (Auto) 1.0 % Basophils (%) (Auto) 0.3 % Neutrophils # (Auto) 6.4 TH/MM3 Lymphocytes # (Auto) 1.7 TH/MM3 Monocytes # (Auto) 0.8 TH/MM3 Eosinophils # (Auto) 0.1 TH/MM3 Basophils # (Auto) 0.0 TH/MM3 CBC Comment DIFF FINAL Differential Comment Urine Color DARK-YELLOW Urine Turbidity HAZY Urine pH 6.0 Urine Specific [place] 1.026 Urine Protein TRACE mg/dL Urine Glucose (UA) NEG mg/dL Urine Ketones NEG mg/dL Urine Occult Blood NEG Urine Nitrite NEG Urine Bilirubin NEG Urine Urobilinogen 2.0 MG/DL Urine Leukocyte Esterase NEG Urine RBC LESS THAN 1 /hpf Urine WBC LESS THAN 1 /hpf Urine Squamous Epithelial Cells 3 /hpf Urine Calcium Oxalate Crystals RARE /hpf Urine Bacteria RARE /hpf Urine Mucus FEW /lpf Microscopic Urinalysis Comment CULT NOT INDICATED Blood Urea Nitrogen 7 MG/DL Creatinine 0.55 MG/DL Random Glucose 96 MG/DL Total Protein 6.7 GM/DL Albumin 2.6 GM/DL Calcium Level 8.6 MG/DL Alkaline Phosphatase 121 U/L Aspartate Amino Transf (AST/SGOT) 111 U/L Alanine Aminotransferase (ALT/SGPT) 106 U/L Total Bilirubin 0.4 MG/DL Sodium Level 138 MEQ/L Potassium Level 4.1 MEQ/L Chloride Level 104 MEQ/L Carbon Dioxide Level 24.8 MEQ/L Anion Gap 9 MEQ/L Estimat Glomerular Filtration Rate 133 ML/MIN Urine Opiates Screen NEG Urine Barbiturates Screen NEG Urine Amphetamines Screen NEG Urine Benzodiazepines Screen NEG Urine Cocaine Screen NEG Urine Cannabinoids Screen NEG Physical Examination HEENT: PERRL; normocephalic; atraumatic; no jaundice. CHEST: CTA CARDIAC: RRR ABDOMEN: Soft, nondistended,mild RUQ; no hepatosplenomegaly; bowel sounds are present in all four quadrants. EXTREMITIES: No clubbing, cyanosis, or edema. SKIN: Normal; no rash; no jaundice. 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 (Esther Moore) Assessment and Plan Plan ASSESSMENT - RUQ pain, elevated LFTs - 2nd episode in 1 week sharp RUQ pain that radiates to right shoulder. no other sx,. tbil WNL. no significant PMH. 20wks prior liver w/u negative, no hepatitis. mother had cirrhosis, unk etiology. US today showed gallbladder polyp, same as US 10/06/17 showed same d/w Dr Bartlett, pt can have surgery if needed now and up until 28 weeks so if surgery required, must be done soon PLAN - MRCP no contrast - stool for ova and parasites - consider GS consult - monitor labs - further recs to follow depending on results above pt seen by myself and DR Bonilla and this note is on her behalf (Esther Moore) Physician Comments seen, examined agree with above general surgery consulted (Negrita Bonilla MD) Esther Moore Oct 10, 2017 11:35 Negrita Bonilla MD Oct 10, 2017 18:23
--- NOTE | 2017-10-10 15:50 | RADRPT ---
EXAM DATE/TIME: 10/10/2017 14:23 [facility] COMPARISON: No previous studies available for comparison. INDICATIONS : Abdominal pain. MEDICAL HISTORY : 20 weeks SURGICAL HISTORY : None. ENCOUNTER: Subsequent ACUITY: 1 week PAIN SCORE: 2/10 LOCATION: Right upper quadrant abdomen TECHNIQUE: Multiplanar, multisequence magnetic resonance imaging of the abdomen was performed. High-resolution 3D dataset was utilized to reconstruct maximum-intensity projection (MIP) images. FINDINGS: INTRAHEPATIC BILE DUCTS: Within normal limits. No significant anatomical variant is present. EXTRAHEPATIC BILE DUCTS: The common bile duct measures 4 mm No stone or filling defect is identified. GALLBLADDER: No stones, wall thickening, or pericholecystic fluid. LIVER: Normal size and signal intensity. No concerning liver lesion is identified on this non-contrast exam. PANCREAS: The main pancreatic duct is normal in size. There is no significant anatomical variant. Signal inte nsity is within normal limits. No mass is visualized on this non-contrast exam. OTHER: The remaining visualized structures demonstrate no acute abnormality on this non-contrast exam. CONCLUSION: Negative for gallstones. Normal common duct. Arpit Nelson MD FACR on October 10, 2017 at 15:45 Board Certified Radiologist. This report was verified electronically.
[2017-10-10] MEDS ORDERED: oxyCODONE/ACETAMINOPHEN 5 MG/325 MG TAB PO PRN ×2 (18:15)
[2017-10-10] MEDS ORDERED: DOCUSATE SODIUM 50 MG/SENNA 8.6 MG TAB PO PRN (19:00)
[2017-10-10] MEDS: AMOXICILLIN/CLAVULANATE K 875 MG TAB PO SCH (21:09)
[2017-10-10] MEDS ORDERED: TRICTAB PO (21:19)
[2017-10-11 02:00] VITALS: RESP 16
[2017-10-11 04:00] VITALS: RESP 16
[2017-10-11 05:12] VITALS: RESP 16
[2017-10-11 07:42] VITALS: BP 89/45; PULSE 66; RESP 17; TEMP 98
[2017-10-11 07:45] LABS: HEMATOCRIT 32.6 % (35.0-46.0); MEAN CELL VOLUME 87.9 FL (80.0-100.0); MEAN CORPUSCULAR HEMOGLOBIN 29.7 PG (27.0-34.0); MEAN CORPUSCULAR HGB CONC 33.8 % (32.0-36.0); MEAN PLATELET VOLUME 8.3 FL (7.0-11.0); PLATELET COUNT 219 TH/MM3 (150-450); RED BLOOD COUNT 3.71 MIL/MM3 (4.00-5.30); WHITE BLOOD COUNT 6.2 TH/MM3 (4.0-11.0)
--- NOTE | 2017-10-11 08:07 | MB ---
cc: Devonte Bruno MD DATE OF CONSULT: 10/10/2017 PHYSICIAN REQUESTING CONSULTATION: Bertin Branch MD REASON FOR CONSULTATION: Gallstones. HISTORY OF PRESENT ILLNESS: The patient is a 26-year-old female who speaks Amharic who was admitted to [facility] labor and delivery unit for symptomatic gallstones. The patient is 20 weeks gestation from her first . The patient had abdominal pain last week, underwent workup and was found to have symptomatic cholelithiasis. The patient was discharged home; however, returned with the same symptoms. The patient states that this pain is the same as prior and has been present for 24 hours. This is a right upper quadrant and radiates around the right side. Of note, the entire patient history was obtained with a hospital medical assistant through the hospital provided translation system. LABORATORY DATA: Recent laboratory values show white blood cell count 8.9, hemoglobin 10.8, elevated AST, ALT and alkaline phosphatase. Bilirubins are within normal limits. IMAGING: Imaging did show a gallbladder ultrasound with a gallbladder polyp. MRI is negative for gallstones. Normal common bile duct. REVIEW OF SYSTEMS: A 12-point review of systems was conducted with the patient and is negative except for the pertinent positives mentioned above in the history of present illness. PAST MEDICAL HISTORY: None. The patient is a G1, P0. PAST SURGICAL HISTORY: None. ALLERGIES: NO KNOWN DRUG ALLERGIES. MEDICATIONS: None. FAMILY HISTORY: Unremarkable, noncontributory. SOCIAL HISTORY: The patient denies alcohol, tobacco or illicit drug use. PHYSICAL EXAM: VITAL SIGNS: Blood pressure 97/49, pulse 68, temperature 98.2 degrees. GENERAL: The patient is a thin female in no acute distress. HEENT: Head is normocephalic, atraumatic. Pupils equal, round, and reactive to accommodation and light. Sclerae are anicteric. Oral cavity is clear. Airway is patent. NECK: Supple. No JVD. LUNGS: Breath sounds present bilaterally. Nonlabored breathing pattern. HEART: Regular rate and rhythm. ABDOMEN: Nondistended. Soft. She is nontender in the right upper quadrant with no Key sign. No surgical scars. No hernias. Normal bowel sounds. Gravid above the umbilicus. EXTREMITIES: No clubbing, cyanosis or edema. NEUROLOGIC: The patient is awake, alert and oriented x 3. Nonfocal peripheral exam. Cranial nerves grossly intact. ASSESSMENT AND PLAN: The patient is a 26-year-old female, 20 weeks of gestation with likely symptomatic cholelithiasis. The patient is afebrile. She has no Key sign on exam. No white blood cell count at this time. However, the patient does have some very mild elevated AST and ALT which could related to an intrinsic disease or possibly this can be elevated mildly with inflammation such as a very mild cholecystitis. I discussed with the patient with a electroencephalograph technician that due to her that any symptomatic cholelithiasis or mild cases of acute cholecystitis should be managed nonoperatively with medical management initially. If the patient fails this and developed significant refractory pain, nausea, vomiting or other significant symptoms, we would proceed to the operating room. I did discuss the possible surgical interventions, risks, benefits and alternatives including risk of loss. I discussed nonoperative management with a short course of antibiotics as well as low fat diet and p.r.n. analgesics. She is in agreement with this plan. I discussed this with the OB hospitalist caring for the patient as well. Thank you very much for this consultation. We will follow along with the patient. MD PREMA Yee/ASAEL , 10:37 PM , 08:05 AM
--- NOTE | 2017-10-11 08:24 | HHI.DCPOC ---
Discharge Care Plan Diagnosis: (1) Right upper quadrant abdominal pain (2) Second trimester (3) Elevated transaminase level Report Symptoms to Your Doctor -Temperature above 100.5 degrees -Redness, of incision or excessive or foul smelling drainage -Unusual pain or calf pain -Increased vaginal bleeding -Painful or difficulty urinating -Feelings of extreme sadness or anxiety after 2 weeks Goals to Promote Your Health * To prevent worsening of your condition and complications * To maintain your health at the optimal level Directions to Meet Your Goals Take your medications as prescribed Follow your dietary instruction Follow activity as directed Ensure plenty of rest for recovery Drink fluids for hydration Keep your appointments as scheduled Take your immunizations and boosters as scheduled If your symptoms worsen call your PCP, if no PCP go to Urgent Care Center or Emergency Room Smoking is Dangerous to Your Health. Avoid second hand smoke Call the 24-hour crisis hotline for domestic abuse at Charlene Diaz MD Oct 11, 2017 08:24
[2017-10-11 08:30] LABS: ALBUMIN 2.4 GM/DL (3.4-5.0); ALT (GPT) 91 U/L (10-53); AST (GOT) 43 U/L (15-37); BICARBONATE 22.3 MEQ/L (21.0-32.0); BLOOD UREA NITROGEN 4 MG/DL (7-18); CALCIUM 8.5 MG/DL (8.5-10.1); CHLORIDE 106 MEQ/L (98-107); CREATININE 0.37 MG/DL (0.50-1.00); GLOMERULAR FILTRATION RATE 209 ML/MIN (>89); GLUCOSE,RANDOM 66 MG/DL (74-106); SODIUM (NA) 138 MEQ/L (136-145)
[2017-10-11 08:33] LABS: ALKALINE PHOSPHATASE 114 U/L (45-117); TOTAL BILIRUBIN ADULT 0.3 MG/DL (0.2-1.0); TOTAL PROTEIN 6.3 GM/DL (6.4-8.2)
[2017-10-11] MEDS ORDERED: AMOX875T2 PO (08:49)
--- NOTE | 2017-10-11 08:59 | PD.OB.ANTE ---
Subjective Interval History Patient is doing well this morning, she denies abdominal pain, nausea, vomiting , fever, or chills. She understands that she would be discharged home today and is ready to go. Antepartum ROS: Reports: movement normal, Denies: Loss of fluid, Vaginal bleeding, Contractions Objective Vital Signs Vital Signs Date Time Temp Pulse Resp B/P (MAP) Pulse Ox O2 Delivery O2 Flow Rate FiO2 10/11/17 07:42 98.0 17 10/11/17 07:42 66 89/45 (60) 10/11/17 05:12 16 10/11/17 04:00 16 10/11/17 02:00 16 10/10/17 23:23 98.7 18 10/10/17 23:23 74 89/43 (58) 10/10/17 21:11 18 10/10/17 19:12 75 18 10/10/17 19:12 95/51 (66) 10/10/17 19:11 18 10/10/17 18:00 98.2 10/10/17 17:10 17 10/10/17 17:08 68 97/49 (65) 10/10/17 11:46 68 17 93/53 (66) Lab & Micro Results Test 10/11/17 07:20 White Blood Count 6.2 TH/MM3 Red Blood Count 3.71 MIL/MM3 Hemoglobin 11.0 GM/DL Hematocrit 32.6 % Mean Corpuscular Volume 87.9 FL Mean Corpuscular Hemoglobin 29.7 PG Mean Corpuscular Hemoglobin Concent 33.8 % Red Cell Distribution Width 14.0 % Platelet Count 219 TH/MM3 Mean Platelet Volume 8.3 FL Blood Urea Nitrogen 4 MG/DL Creatinine 0.37 MG/DL Random Glucose 66 MG/DL Total Protein 6.3 GM/DL Albumin 2.4 GM/DL Calcium Level 8.5 MG/DL Alkaline Phosphatase 114 U/L Aspartate Amino Transf (AST/SGOT) 43 U/L Alanine Aminotransferase (ALT/SGPT) 91 U/L Total Bilirubin 0.3 MG/DL Sodium Level 138 MEQ/L Potassium Level 3.5 MEQ/L Chloride Level 106 MEQ/L Carbon Dioxide Level 22.3 MEQ/L Anion Gap 10 MEQ/L Estimat Glomerular Filtration Rate 209 ML/MIN Physical Exam GENERAL: Well-nourished, well-developed patient. CARDIOVASCULAR: Regular rate and rhythm without murmurs, gallops, or rubs. RESPIRATORY: Breath sounds equal bilaterally. No accessory muscle use. ABDOMEN/GI: Abdomen soft, minimally to TTP in the RUQ, epigastric and LLQ GENITOURINARY: External Genitalia: intact and normal in appearance Uterine Contractions: None FHT's: 148 by doppler EXTREMITIES: No cyanosis or edema, non-tender, without signs of DVT Assessment and Plan Assessment and Plan 1. IUP -FHTs reassuring, 148 this am -Had ultrasound on 10/10/2017 that showed a thickened nuchal fold and bilateral pyelectasis -MFM consult tomorrow 10/12/17 -Need to clarify hospital location for patient's delivery, attempts to contact patient's OB provider Desirae Cheung at [facility] in [place] were unsuccessful - records have been requested to be faxed to [employer], records release form faxed -Continue routine care 2. Recurrent RUQ Abdominal Pain -Hepatitis panel negative -MRCP performed on 10/10/2017 was negative -Resolved - able to eat and drink without pain, nausea, or vomiting -GI and GS on board - will treat conservatively with Augmentin x 7 days and Percocet as needed for pain; cholecystectomy if condition worsens -Some specialized labs ordered by GI still pending -Patient to follow up with GI and GS as an outpatient in 2 weeks 3. Elevated Transaminases -AST/ALT decreased from 111/106 on 10/10/17 to 43/91 on 10/11/17 -Discussed staying adequately hydrated and eating a low fat diet [facility] 's nurse present. Patient demonstrated understanding and agreement with the plan. Discharge home today Discussed with Charlene Boles MD Oct 11, 2017 08:59
[2017-10-11] MEDS: AMOXICILLIN/CLAVULANATE K 875 MG TAB PO SCH (09:04)
[2017-10-11] MEDS ORDERED: OXYC1TAB63 PO (09:57)
[2017-10-11 10:53] VITALS: BP 110/60; PULSE 86
--- NOTE | 2017-10-11 10:55 | HHI.GIFU ---
Subjective Remarks Pt resting in bed in NAD. Tolerating diet. Pain improved, still some tenderness though. No n/v. (Esther Moore) Objective Vitals I&O Vital Signs Date Time Temp Pulse Resp B/P (MAP) Pulse Ox O2 Delivery O2 Flow Rate FiO2 10/11/17 07:42 98.0 17 10/11/17 07:42 66 89/45 (60) 10/11/17 05:12 16 10/11/17 04:00 16 10/11/17 02:00 16 10/10/17 23:23 98.7 18 10/10/17 23:23 74 89/43 (58) 10/10/17 21:11 18 10/10/17 19:12 75 18 10/10/17 19:12 95/51 (66) 10/10/17 19:11 18 10/10/17 18:00 98.2 10/10/17 17:10 17 10/10/17 17:08 68 97/49 (65) 10/10/17 11:46 68 17 93/53 (66) Laboratory Laboratory Tests Test 10/11/17 07:20 White Blood Count 6.2 Red Blood Count 3.71 Hemoglobin 11.0 Hematocrit 32.6 Mean Corpuscular Volume 87.9 Mean Corpuscular Hemoglobin 29.7 Mean Corpuscular Hemoglobin Concent 33.8 Red Cell Distribution Width 14.0 Platelet Count 219 Mean Platelet Volume 8.3 Blood Urea Nitrogen 4 Creatinine 0.37 Random Glucose 66 Total Protein 6.3 Albumin 2.4 Calcium Level 8.5 Alkaline Phosphatase 114 Aspartate Amino Transf (AST/SGOT) 43 Alanine Aminotransferase (ALT/SGPT) 91 Total Bilirubin 0.3 Sodium Level 138 Potassium Level 3.5 Chloride Level 106 Carbon Dioxide Level 22.3 Anion Gap 10 Estimat Glomerular Filtration Rate 209 Imaging Last Impressions Gall Bladder Ultrasound 10/10/17 0000 Signed Impressions: Service Date/Time: Tuesday, October 10, 2017 10:23 - CONCLUSION: Gallbladder polyp. Spike Delgado MD Cholangiopancreatography MRI 10/10/17 0000 Signed Impressions: Service Date/Time: Tuesday, October 10, 2017 14:23 - CONCLUSION: Negative for gallstones. Normal common duct. Arpit Nelson MD FACR Physical Exam HEENT: PERRL; normocephalic; atraumatic; no jaundice. CHEST: CTA CARDIAC: RRR ABDOMEN: Soft, nondistended, mild RUQ TTP; no hepatosplenomegaly; bowel sounds are present in all four quadrants. EXTREMITIES: No clubbing, cyanosis, or edema. SKIN: Normal; no rash; no jaundice. 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 (Esther Moore) Assessment and Plan Plan ASSESSMENT - RUQ pain, elevated LFTs - 2nd episode in 1 week sharp RUQ pain that radiates to right shoulder. no other sx,. tbil WNL. no significant PMH. 20wks prior liver w/u negative, no hepatitis. mother had cirrhosis, unk etiology. US today showed gallbladder polyp, same as US 10/06/17 showed same d/w Dr Bartlett, pt can have surgery if needed now and up until 28 weeks so if surgery required, must be done soon 10/11/17 LFTs trending down, pain improving. GS eval appreciated. MRCP neg. PLAN - low fat diet - stable for d/c from GI standpoint. pt seen by myself and DR Bonilla and this note is on her behalf (Esther Moore) Physician Comments agree with above gi will sign off fu gi in 2-4 weeks unless indicated otherwise (Negrita Bonilla MD) Esther Moore Oct 11, 2017 10:55 Negrita Bonilla MD Oct 11, 2017 12:39
== END 2017-10-11 12:43 | disposition home or self-care (01) ==
LOC: HOBED 00:32 → H2EA 01:56
PROVIDERS: ADMIT Obstetrics & Gynecology Maternal & Fetal Medicine; ATTEND Obstetrics & Gynecology Maternal & Fetal Medicine
DX: O26.612 Liver and biliary tract disorders in pregnancy, second trimester (principal); K82.4 Cholesterolosis of gallbladder; R74.8 Abnormal levels of other serum enzymes; R74.0 Nonspecific elevation of levels of transaminase and lactic acid dehydrogenase [LDH]; Z3A.20 20 weeks gestation of pregnancy
CPT/HCPCS: 74181; 76377; 76705; 76805; 80053; 80307; 81001; 83520; 85025; 85027; 86850; 86900; 86901; 87328; 87329; 96361; 96374; 96376; 99285; G0378; G0481; J2270; J2405; J7120

== ENCOUNTER → 2017-10-12 | Outpatient (CLI) | payer OTHER ==
[~2017-10-12] MED LIST: AMOX875T2 PO; OXYC1TAB63 PO; TRICTAB PO
== END ==
LOC: HPND 11:35
PROVIDERS: ATTEND Obstetrics & Gynecology Obstetrics
DX: O35.1XX0 Maternal care for (suspected) chromosomal abnormality in fetus, not applicable or unspecified (principal)
CPT/HCPCS: 76815

== ENCOUNTER → 2017-11-23 | Outpatient (CLI) | payer OTHER | LOC: HPND 13:19 | DX: O35.8XX0 Maternal care for other (suspected) fetal abnormality and damage, not applicable or unspecified (principal); Z3A.00 Weeks of gestation of pregnancy not specified | CPT/HCPCS: 76816; 76825; 76827; 93325 ==

== ENCOUNTER → 2017-12-22 | Outpatient (CLI) | payer OTHER | LOC: HPND 13:02 | PROVIDERS: ATTEND Obstetrics & Gynecology Obstetrics | DX: O35.1XX0 Maternal care for (suspected) chromosomal abnormality in fetus, not applicable or unspecified (principal) | CPT/HCPCS: 76816 ==

== ENCOUNTER 2018-03-04 21:04 | Inpatient (IN) ==
[2018-03-04] MEDS ORDERED: Naloxone Inj 0.4 MG/ML Vial IV.PUSH PRN (22:55)
[2018-03-04] MEDS ORDERED: Sodium Chlor 0.9% Inj 500 ML IV.SIG PRN (22:55)
[2018-03-04] MEDS ORDERED: Oxytocin 30 Units/500ml Premix 30 UNITS/500 ML BAG IV.SIG ONE (22:55)
[2018-03-04] MEDS ORDERED: fentaNYL Citrate Inj 100 MCG/2 ML Ampul IV.PUSH PRN ×2 (22:55)
[2018-03-04] MEDS ORDERED: Sod Chloride 0.9% Inj 1,000 ML IV.CONT PRN (22:55)
[2018-03-04] MEDS ORDERED: Oxytocin 30 Units/500ml Premix 30 UNITS/500 ML BAG IV.SIG PRN (23:00)
[2018-03-04] MEDS ORDERED: Citric Acid/Sodium Citrate Liq 30 ML UDC PO SCH (23:00)
--- NOTE | 2018-03-04 23:17 | P.HPOB ---
History of Present Illness Primary Care Physician: NOT REQUIRED Chief Complaint: Induction of labor History of Present Illness: Patient is a 27-year-old female who presents to labor and delivery for induction of labor. She is currently 40 weeks and 5 days cervical exam of 3 cm dilation, 80% effacement, -3 station. Patient reports no complications during this , she has no past medical history, reports no allergies, and takes no medications. Patient is feeling baby move okay, denies loss of fluid or blood, and is not having contractions of the moment. Patient does not have a GBS test. - Inpatient Certification I certify that the inpatient services were ordered in accordance with Medicare regulations governing the order. This includes certification that hospital inpatient services are reasonable and necessary and in the case of services not specified as inpatient-only under 42 CFR 419.22(n), that they are appropriately provided as inpatient services in accordance to with the 2-midnight benchmark under 43 CFR 412.3(e) Estimated Total Length of Stay (Days): 2 Plans for Post Hospital Care: Home Review of Systems Constitutional: Denies chills, Denies fever(s), Denies headache(s) Eyes: Denies blurry vision, Denies change in vision Cardiovascular: Reports leg swelling (Swelling of feet throught the ), Denies chest pain, Denies lightheadedness Respiratory: Denies chest congestion, Denies cough, Denies pain on inspiration Gastrointestinal: Reports loose stools, Denies abdominal pain, Denies cramping, Denies nausea, Denies vomiting Genitourinary: Denies abnormal vaginal bleeding PMFSH - Medical / Surgical Hx Neg / Unobtainable Medical Problems Denied: Yes Surgical History: No Previous Surgery Medications and Allergies Active Medications: Active Medications Citric Acid/Sodium Citrate (Sodium Citrate/Citric Acid Liq) 30 ml 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 [facility] Stop: 03/08/18 22:59 Fentanyl Citrate (Fentanyl Inj) 50 mcg IV.PUSH Q1H PRN PRN Reason: Pain Scale 3 - 5 Fentanyl Citrate (Fentanyl Inj) 100 mcg IV.PUSH Q1H PRN PRN Reason: PAIN SCALE 6 TO 10 Lactated Ringer's (Lr 1000 Ml Inj) 1,000 mls @ 125 mls/hr IV.CONT .Q8H [facility] Sodium Chloride (Ns Inj) 500 mls @ 1,000 mls/hr IV.SIG UNSCH PRN PRN Reason: SEE LABEL COMMENTS Sodium Chloride (Ns Inj) 1,000 mls @ 100 mls/hr IV.CONT .Q10H PRN PRN Reason: SEE LABEL COMMENTS Oxytocin (Pitocin 30 Units/Ns 500 Ml Premix) 30 units in 500 mls @ 999 mls/hr IV.SIG BOLUS ONE Stop: 03/04/18 23:25 Lactated Ringer's (Lr 1000 Ml Inj) 1,000 mls @ 3,000 mls/hr IV.SIG UNSCH PRN PRN Reason: compromise or epidural Oxytocin (Pitocin 30 Units/Ns 500 Ml Premix) 30 units in 500 mls @ 1 mls/hr IV.SIG TITRATE PRN; Protocol PRN Reason: For induction of labor Lidocaine HCl (Xylocaine 1% Inj) 0.1 ml I-DERMAL PRN PRN PRN Reason: For IV start Stop: 03/07/18 22:54 Lidocaine HCl (Xylocaine 1% Inj) 10 ml INFILTRATN PRN PRN PRN Reason: For episiotomy repair Stop: 03/06/18 22:54 Mineral Oil (Muri-Lube Oil) 10 ml TOPICAL PRN PRN PRN Reason: PRN perineal massage Naloxone HCl (Narcan Inj) 0.1 mg IV.PUSH Q2M PRN PRN Reason: for opiate reversal Allergies Allergy/AdvReac Type Severity Reaction Status Date / Time No Known Allergies Allergy Verified 03/04/18 21:24 no known allergy Allergy Unknown none Uncoded 03/04/18 21:24 Home Medications Medication Instructions Recorded Confirmed Type prenat.vits,concepcion,euz-tllo-[id number] 1 tab PO DAILY 03/04/18 03/04/18 History [ Vitamin] Exam Vital signs: Vital Signs 03/04/18 22:10 03/04/18 22:50 03/04/18 22:55 Pulse Rate 80 82 76 Blood Pressure 118/74 Intake & Output 03/04/18 03/04/18 03/05/18 06:59 18:59 06:59 Weight 101.151 kg Narrative: GENERAL: Well-nourished, well-developed patient. SKIN: Warm and dry. HEAD: Normocephalic and atraumatic. EYES: No scleral icterus. No injection or drainage. ENT: No nasal drainage noted. Mucous membranes pink. Airway patent. NECK: Supple, trachea midline. No JVD. CARDIOVASCULAR: Regular rate and rhythm without murmurs, gallops, or rubs. RESPIRATORY: Breath sounds equal bilaterally. No accessory muscle use. BREASTS: Bilateral exam showed no masses , no retractions, no nipple discharge. ABDOMEN/GI: Gravid, abdomen soft, non-tender, bowel sounds present, no rebound, no guarding GENITOURINARY: Cervix: anterior Dilatation: 3cm Effacement: 80% Station: -3 Membranes: intact Uterine Contractions: negative FHT's: Category: 1 Baseline: 150 Reactive: yes Variability: moderate Decels: absent EXTREMITIES: No cyanosis. 1 bilateral feet edema BACK: Nontender without obvious deformity. No CVA tenderness. NEUROLOGICAL: Awake and alert. Motor and sensory grossly within normal limits. Five out of 5 muscle strength in all muscle groups. Normal speech. Caprini VTE Risk Assessment Caprini VTE Risk Assessment: No/Low Risk (score <= 1) Caprini Risk Assessment Model: Point Value = 1 Point Value = 2 Point Value = 3 Point Value = 5 Age 41-60 Minor surgery BMI > 25 kg/m2 Swollen legs Varicose veins or History of unexplained or recurrent spontaneous Oral contraceptives or hormone replacement Sepsis (< 1 month) Serious lung disease, including pneumonia (< 1 month) Abnormal pulmonary function Acute myocardial infarction Congestive heart failure (< 1 month) History of inflammatory bowel disease Medical patient at bed rest Age 61-74 Arthroscopic surgery Major open surgery (> 45 min) Laparoscopic surgery (> 45 min) Malignancy Confined to bed (> 72 hours) Immobilizing plaster cast Central venous access Age >= 75 History of VTE Family history of VTE Factor V Leiden Prothrombin [id number] Lupus anticoagulant Anticardiolipin antibodies Elevated serum homocysteine Heparin-induced thrombocytopenia Other congenital or acquired thrombophilia Stroke (< 1 month) Elective arthroplasty Hip, pelvis, or leg fracture Acute spinal cord injury (< 1 month) Prophylaxis Regimen: Total Risk Factor Score Risk Level Prophylaxis Regimen 0-1 Low Early ambulation 2 Moderate Order ONE of the following: *Sequential Compression Device (SCD) *Heparin 5000 units SQ BID 3-4 Higher Order ONE of the following medications: *Heparin 5000 units SQ TID *Enoxaparin/Lovenox 40 mg SQ daily (WT < 150 kg, CrCl > 30 mL/min) *Enoxaparin/Lovenox 30 mg SQ daily (WT < 150 kg, CrCl > 10-29 mL/min) *Enoxaparin/Lovenox 30 mg SQ BID (WT < 150 kg, CrCl > 30 mL/min) AND/OR *Sequential Compression Device (SCD) 5 or more Highest Order ONE of the following medications: *Heparin 5000 units SQ TID (Preferred with Epidurals) *Enoxaparin/Lovenox 40 mg SQ daily (WT < 150 kg, CrCl > 30 mL/min) *Enoxaparin/Lovenox 30 mg SQ daily (WT < 150 kg, CrCl > 10-29 mL/min) *Enoxaparin/Lovenox 30 mg SQ BID (WT < 150 kg, CrCl > 30 mL/min) AND *Sequential Compression Device (SCD) Assessment and Plan - Diagnosis (1) Elective induction of labor planned Status: Acute - Plan 27-year-old at 40 weeks and 5 days here for induction of labor. No complications during this . - Admit to L&D - Favorable cervix - Oxytocin for induction of labor - Rapid GBS test - Anticipate vaginal delivery D/W and Dr. Wood
[2018-03-04 23:48] LABS: Baso % (Auto) 0.3 % (0.0-2.0); Eos # (Auto) 0.1 th/mm3 (0.0-0.4); Eos % (Auto) 1.3 % (0.0-4.0); Hematocrit 34.1 % (35.0-46.0); Hemoglobin 11.5 gm/dL (11.6-15.3); Lymph # (Auto) 1.9 th/mm3 (1.0-4.8); Lymph % (Auto) 16.8 % (9.0-44.0); Mean Corpuscular HGB Conc 33.9 % (32.0-36.0); Mean Corpuscular Hemoglobin 29.2 pg (27.0-34.0); Mean Corpuscular Volume 86.3 fL (80.0-100.0); Mean Platelet Volume 9.1 fL (7.0-11.0); Mono # (Auto) 0.8 th/mm3 (0.0-0.9); Neut # (Auto) 8.3 th/mm3 (1.8-7.7); Neut % (Auto) 74.6 % (16.0-70.0); Platelet Count 288 th/mm3 (150-450); Red Blood Count 3.95 mil/mm3 (4.00-5.30); Red Cell Distribution Width 14.9 % (11.6-17.2); White Blood Count 11.1 th/mm3 (4.0-11.0)
[2018-03-04 23:51] LABS: Bilirubin,Urine Negative (Negative); Calcium Oxalate Crystals,Urine Occasional /hpf; Clarity,Urine Hazy (Clear); Color,Urine Yellow (Yellw/Straw); Glucose,Urine (UA) Negative (Negative); Leukocyte Esterase,Urine Negative (Negative); Mucus,Urine Few /lpf (Occasional); Nitrite,Urine Negative (Negative); Specific Gravity,Urine 1.025 (1.002-1.035); Squamous Epithelial Cell,Urine 2 /hpf (0-5)
[2018-03-04 23:55] LABS: Amphetamine Urine With Conf Neg (Neg); Benzodiazepine Urine With Conf Neg (Neg)
[2018-03-05] MEDS ORDERED: fentaNYL 2MCG-Bupiv 0.125% Epi 150 ML EPIDURAL ONE (08:50)
[2018-03-05] MEDS ORDERED: fentaNYL 2MCG-Bupiv 0.125% Epi 150 ML EPIDURAL PRN (10:00)
[2018-03-05] MEDS ORDERED: fentaNYL Citrate Inj 100 MCG/2 ML Ampul EPIDURAL ONE (10:00)
--- NOTE | 2018-03-05 10:35 | P.PN ---
Subjective Interval history: The patient was seen and evaluated. She is comfortable with her epidural. Discussed the risks of , risks and medical indications of delivery. Discussed risks that include but are not limited to pain, infection, bleeding, injury to other organs like bladder/bowels/nerves/vessels or baby, need for repeat operation or hysterectomy, need for blood transfusion, wound infection/breakdown and other possible risks. All of the patient's questions were answered, will continue current management. FHR 120s with moderate LTV, good accels and no decels noted at this time with a category 1 heart rate tracing. Physical Exam Vital signs: Vital Signs 03/04/18 22:10 03/04/18 22:50 03/04/18 22:55 Temperature Pulse Rate 80 82 76 Respiratory Rate Blood Pressure 118/74 03/04/18 23:20 03/04/18 23:23 03/04/18 23:25 Temperature 98.6 F Pulse Rate 78 72 76 Respiratory Rate 15 Blood Pressure 112/64 03/04/18 23:50 03/04/18 23:55 03/05/18 00:00 Temperature Pulse Rate 72 72 70 Respiratory Rate Blood Pressure 03/05/18 00:35 03/05/18 00:40 03/05/18 00:55 Temperature Pulse Rate 74 70 78 Respiratory Rate Blood Pressure 117/62 03/05/18 01:20 03/05/18 01:25 03/05/18 01:45 Temperature Pulse Rate 73 83 77 Respiratory Rate Blood Pressure 105/78 03/05/18 01:50 03/05/18 01:55 03/05/18 02:10 Temperature Pulse Rate 67 71 63 Respiratory Rate Blood Pressure 03/05/18 02:15 03/05/18 02:25 03/05/18 03:45 Temperature Pulse Rate 84 81 74 Respiratory Rate Blood Pressure 03/05/18 04:10 03/05/18 04:30 03/05/18 04:57 Temperature 97.7 F Pulse Rate 71 69 70 Respiratory Rate 17 Blood Pressure 114/67 03/05/18 05:10 03/05/18 06:00 03/05/18 06:10 Temperature Pulse Rate 67 71 72 Respiratory Rate Blood Pressure 03/05/18 06:24 03/05/18 06:40 03/05/18 06:55 Temperature Pulse Rate 69 62 67 Respiratory Rate Blood Pressure 111/69 03/05/18 07:00 03/05/18 07:43 03/05/18 09:11 Temperature 97.6 F Pulse Rate 69 80 74 Respiratory Rate 20 18 Blood Pressure 102/63 124/74 03/05/18 09:14 03/05/18 09:45 03/05/18 10:00 Temperature Pulse Rate 62 63 72 Respiratory Rate 18 Blood Pressure 120/75 123/74 92/49 L Intake & Output 03/04/18 03/05/18 03/05/18 18:59 06:59 18:59 Intake Total 1000 / 1000 1000 / 1000 Balance 1000 / 1000 1000 / 1000 Weight 101.151 kg Intake: IV 1000 / 1000 1000 / 1000 LR 1000 mL Inj 1,000 ML @ 125 1000 / 1000 1000 / 1000 mls/hr IV.CONT .Q8H [facility] Rx#: [id number] Results - Labs CBC & Chem 7: 03/04/18 22:55 Laboratory Results - last 24 hr 03/04/18 03/04/18 03/04/18 21:25 21:55 21:55 WBC RBC Hgb Hct MCV MCH MCHC RDW Plt Count MPV Neut % (Auto) Lymph % (Auto) [place] % (Auto) Eos % (Auto) Baso % (Auto) Neut # (Auto) Lymph # (Auto) [place] # (Auto) Eos # (Auto) Baso # (Auto) WBC Differential Differential Comment Urine Color Yellow Urine Clarity Hazy H Urine pH 5.0 Ur Specific [place] 1.025 Urine Protein Negative Urine Glucose (UA) Negative Urine Ketones Negative Urine Occult Blood Negative Urine Nitrate Negative Urine Bilirubin Negative Urine Urobilinogen Less than 2 Ur Leukocyte Esterase Negative Urine RBC Less than 1 Urine WBC 2 Ur Squamous Epith Cells 2 Calcium Oxalate Crystal Occasional H Urine Mucus Few H Micro UA Comment Culture not ind Urine Culture Comments Culture not ind Urine Opiates Screen Neg Cancelled Ur Barbiturates Screen Neg Cancelled Ur Amphetamine Screen Neg Ur Amphetamines Screen Cancelled U Benzodiazepines Scrn Neg Cancelled Urine Cocaine Screen Neg Cancelled U Cannabinoids Screen Neg Cancelled Group B Strep (PCR) Blood Type 03/04/18 03/04/18 03/04/18 22:25 22:55 23:25 WBC 11.1 H RBC 3.95 L Hgb 11.5 L Hct 34.1 L MCV 86.3 MCH 29.2 MCHC 33.9 RDW 14.9 Plt Count 288 MPV 9.1 Neut % (Auto) 74.6 H Lymph % (Auto) 16.8 [place] % (Auto) 7.0 Eos % (Auto) 1.3 Baso % (Auto) 0.3 Neut # (Auto) 8.3 H Lymph # (Auto) 1.9 [place] # (Auto) 0.8 Eos # (Auto) 0.1 Baso # (Auto) 0.0 WBC Differential . Differential Comment Auto diff final Urine Color Urine Clarity Urine pH Ur Specific [place] Urine Protein Urine Glucose (UA) Urine Ketones Urine Occult Blood Urine Nitrate Urine Bilirubin Urine Urobilinogen Ur Leukocyte Esterase Urine RBC Urine WBC Ur Squamous Epith Cells Calcium Oxalate Crystal Urine Mucus Micro UA Comment Urine Culture Comments Urine Opiates Screen Ur Barbiturates Screen Ur Amphetamine Screen Ur Amphetamines Screen U Benzodiazepines Scrn Urine Cocaine Screen U Cannabinoids Screen Group B Strep (PCR) Negative Blood Type O Positive
[2018-03-05] MEDS ORDERED: Lidocaine 2%/Epinephrine 1:200,000 PF Inj 20 ML Vial INFILTRATN ONE (12:00)
[2018-03-05] MEDS ORDERED: Phenylephrine/NS 1000 MCG/10ML Syringe IV.PUSH ONE (12:00)
--- NOTE | 2018-03-05 13:12 | P.PN ---
Subjective Interval history: Attending Patient seen and examined by me. SVE 6/C/-1. FHR initially reassuring but with decelerations noted after AROM. IUPC placed and amnioinfusion initiated. FSE placed for better FHR assessment. FHR decels appear to be repetitive and with episode of bradycardia x8 minutes noted to the 80s-90s so terbutaline administered. Decelerations persisted with subsequent bradycardia persisted so decision made for stat delivery. The patient and her were in agreement with the plan. Physical Exam Vital signs: Vital Signs 03/04/18 22:10 03/04/18 22:50 03/04/18 22:55 Temperature Pulse Rate 80 82 76 Respiratory Rate Blood Pressure 118/74 03/04/18 23:20 03/04/18 23:23 03/04/18 23:25 Temperature 98.6 F Pulse Rate 78 72 76 Respiratory Rate 15 Blood Pressure 112/64 03/04/18 23:50 03/04/18 23:55 03/05/18 00:00 Temperature Pulse Rate 72 72 70 Respiratory Rate Blood Pressure 03/05/18 00:35 03/05/18 00:40 03/05/18 00:55 Temperature Pulse Rate 74 70 78 Respiratory Rate Blood Pressure 117/62 03/05/18 01:20 03/05/18 01:25 03/05/18 01:45 Temperature Pulse Rate 73 83 77 Respiratory Rate Blood Pressure 105/78 03/05/18 01:50 03/05/18 01:55 03/05/18 02:10 Temperature Pulse Rate 67 71 63 Respiratory Rate Blood Pressure 03/05/18 02:15 03/05/18 02:25 03/05/18 03:45 Temperature Pulse Rate 84 81 74 Respiratory Rate Blood Pressure 03/05/18 04:10 03/05/18 04:30 03/05/18 04:57 Temperature 97.7 F Pulse Rate 71 69 70 Respiratory Rate 17 Blood Pressure 114/67 03/05/18 05:10 03/05/18 06:00 03/05/18 06:10 Temperature Pulse Rate 67 71 72 Respiratory Rate Blood Pressure 03/05/18 06:24 03/05/18 06:40 03/05/18 06:55 Temperature Pulse Rate 69 62 67 Respiratory Rate Blood Pressure 111/69 03/05/18 07:00 03/05/18 07:43 03/05/18 09:11 Temperature 97.6 F Pulse Rate 69 80 74 Respiratory Rate 20 18 Blood Pressure 102/63 124/74 03/05/18 09:14 03/05/18 09:45 03/05/18 10:00 Temperature Pulse Rate 62 63 72 Respiratory Rate 18 18 Blood Pressure 120/75 123/74 92/49 L 03/05/18 10:15 03/05/18 10:45 03/05/18 11:55 Temperature Pulse Rate 75 73 71 Respiratory Rate 18 Blood Pressure 91/47 L 104/49 L 96/51 L 03/05/18 12:15 03/05/18 12:30 Temperature 97.9 F Pulse Rate 65 74 Respiratory Rate 18 18 Blood Pressure 106/65 107/54 L Intake & Output 03/04/18 03/05/18 03/05/18 18:59 06:59 18:59 Intake Total 1000 / 1000 1000 / 1000 Balance 1000 / 1000 1000 / 1000 Weight 101.151 kg Intake: IV 1000 / 1000 1000 / 1000 LR 1000 mL Inj 1,000 ML @ 125 1000 / 1000 1000 / 1000 mls/hr IV.CONT .Q8H [facility] Rx#: [id number] Results - Labs CBC & Chem 7: 03/04/18 22:55 Laboratory Results - last 24 hr 03/04/18 03/04/18 03/04/18 21:25 21:55 21:55 WBC RBC Hgb Hct MCV MCH MCHC RDW Plt Count MPV Neut % (Auto) Lymph % (Auto) [place] % (Auto) Eos % (Auto) Baso % (Auto) Neut # (Auto) Lymph # (Auto) [place] # (Auto) Eos # (Auto) Baso # (Auto) WBC Differential Differential Comment Urine Color Yellow Urine Clarity Hazy H Urine pH 5.0 Ur Specific [place] 1.025 Urine Protein Negative Urine Glucose (UA) Negative Urine Ketones Negative Urine Occult Blood Negative Urine Nitrate Negative Urine Bilirubin Negative Urine Urobilinogen Less than 2 Ur Leukocyte Esterase Negative Urine RBC Less than 1 Urine WBC 2 Ur Squamous Epith Cells 2 Calcium Oxalate Crystal Occasional H Urine Mucus Few H Micro UA Comment Culture not ind Urine Culture Comments Culture not ind Urine Opiates Screen Neg Cancelled Ur Barbiturates Screen Neg Cancelled Ur Amphetamine Screen Neg Ur Amphetamines Screen Cancelled U Benzodiazepines Scrn Neg Cancelled Urine Cocaine Screen Neg Cancelled U Cannabinoids Screen Neg Cancelled Group B Strep (PCR) Blood Type 03/04/18 03/04/18 03/04/18 22:25 22:55 23:25 WBC 11.1 H RBC 3.95 L Hgb 11.5 L Hct 34.1 L MCV 86.3 MCH 29.2 MCHC 33.9 RDW 14.9 Plt Count 288 MPV 9.1 Neut % (Auto) 74.6 H Lymph % (Auto) 16.8 [place] % (Auto) 7.0 Eos % (Auto) 1.3 Baso % (Auto) 0.3 Neut # (Auto) 8.3 H Lymph # (Auto) 1.9 [place] # (Auto) 0.8 Eos # (Auto) 0.1 Baso # (Auto) 0.0 WBC Differential . Differential Comment Auto diff final Urine Color Urine Clarity Urine pH Ur Specific [place] Urine Protein Urine Glucose (UA) Urine Ketones Urine Occult Blood Urine Nitrate Urine Bilirubin Urine Urobilinogen Ur Leukocyte Esterase Urine RBC Urine WBC Ur Squamous Epith Cells Calcium Oxalate Crystal Urine Mucus Micro UA Comment Urine Culture Comments Urine Opiates Screen Ur Barbiturates Screen Ur Amphetamine Screen Ur Amphetamines Screen U Benzodiazepines Scrn Urine Cocaine Screen U Cannabinoids Screen Group B Strep (PCR) Negative Blood Type O Positive
--- NOTE | 2018-03-05 14:25 | P.OBLABOR ---
Subjective Interval history: Pt does not feel Objective Vital Signs: Vital Signs - 8 hr 03/05/18 06:40 03/05/18 06:55 03/05/18 07:00 Temperature Pulse Rate 62 67 69 Respiratory Rate Blood Pressure 03/05/18 07:43 03/05/18 09:11 03/05/18 09:14 Temperature 97.6 F Pulse Rate 80 74 62 Respiratory Rate 20 18 Blood Pressure 102/63 124/74 120/75 03/05/18 09:45 03/05/18 10:00 03/05/18 10:15 Temperature Pulse Rate 63 72 75 Respiratory Rate 18 18 18 Blood Pressure 123/74 92/49 L 91/47 L 03/05/18 10:45 03/05/18 11:55 03/05/18 12:15 Temperature Pulse Rate 73 71 65 Respiratory Rate 18 Blood Pressure 104/49 L 96/51 L 106/65 03/05/18 12:30 03/05/18 13:10 Temperature 97.9 F Pulse Rate 74 65 Respiratory Rate 18 Blood Pressure 107/54 L 99/52 L Objective: Pelvic Exam: Cervix: [-] Dilatation: [-] Effacement: [-] Station: [-] Presentation: [-] Membranes: [intact or ruptured] Uterine Contractions: [-] FHT's: Category: [-] Baseline: [-] Reactive: [-] Variability: [-] Decels: [-] Assessment and Plan - Diagnosis (1) Elective induction of labor planned Status: Acute - Plan 27-year-old at 40 weeks and 5 days here for induction of labor. No complications during this . - Admit to L&D - Favorable cervix - Oxytocin for induction of labor - Rapid GBS test - Anticipate vaginal delivery D/W and Dr. Wood
[2018-03-05] MEDS ORDERED: Morphine Sulfate PF Inj 5 MG/10 ML Ampul ONE (14:33)
[2018-03-05] MEDS ORDERED: Methylergonovine Inj 0.2 MG/ML Ampul ONE (14:53)
[2018-03-05 15:18] LABS: Cord Arterial Blood HCO3 20.7
[2018-03-05] MEDS ORDERED: Simethicone 80 MG Chew Tablet PO PRN (15:29)
[2018-03-05] MEDS ORDERED: Oxytocin 30 Units/500ml Premix 30 UNITS/500 ML BAG IV.SIG ONE (15:29)
[2018-03-05] MEDS ORDERED: Acetaminophen 325 MG Tablet PO PRN (15:29)
--- NOTE | 2018-03-05 16:02 | P.OBDELI ---
Procedure Note - Pre Op Diagnosis (1) 40 weeks gestation of - Post Op Diagnosis (1) Delivery by emergency section Performed by: Dr. Solomon, assisted by Emily Del Valle MD, R2 and Dr. Diaz Procedure: Primary Low Transverse Section Indication for Delivery: Nonreassuring heart tracing Informed Consent Obtained: For anesthesia, For procedure Confirmed Correct: Patient, Procedure, Site, Time-out taken Anesthesia: Epidural Medication Prior to Procedure: Antibiotics, IV, Sympathomimetics, Other ( Terbutaline x1) Monitoring During Procedure: Blood pressure monitoring, compliance monitor, doppler, monitor, Pulse oximetry Urinary Catheter: Inserted using sterile technique, To dependent drainage, ml urine output Sterile Preparation: With 10% povidone iodine (Betadine), With drapes to expose affected area Position: Supine, Supine with safety belt applied - Operative Features Skin Incision: Transverse Uterine Incision: Low transverse w/knife / blunt ext Membranes Ruptured: Artificially Status of Infant: Cord blood, Nursery present, Resuscitation required Placenta Delivered: Intact, Sent to pathology Medications: Antibiotics, Prostaglandins Estimated blood loss (mL): 250 Procedure Tolerated: Well Maternal Complications: Uterine atony Maternal Condition: Stable Baby Complications: Hypoxia Baby Condition: Stable - Infant Infant: Male Infant Delivery Date: 03/05/18 Infant Delivery Time: 14:45 Delivery of : Uneventful (Transfer to NICU) score (1 min): 8 score (5 min): 8
--- NOTE | 2018-03-05 16:12 | XR ---
EXAM DATE: 03/05/2018 4:07 PM EDT AGE/SEX: 27 years / Female INDICATIONS: Foreign body. Instrument count in labor and delivery. CLINICAL DATA: This is the patient's initial encounter. Patient reports that signs and symptoms have been present for 1 day and indicates a pain score of Nonresponsive. MEDICAL/SURGICAL HISTORY: None. None. COMPARISON: No prior exams available for comparison. FINDINGS: Single view of the mid to lower abdomen was performed. There appears to be a wire-like density overly ing the mid abdomen and lumbar spine. No other definite radiopaque densities are seen on this single view. CONCLUSION: Wire-like density midline mid abdomen overlying the lumbar spine. Electronically signed by: Alex Hammond MD 03/05/2018 4:10 PM EDT
[2018-03-05] MEDS ORDERED: Naloxone Inj 0.4 MG/ML Vial IV.PUSH PRN (17:57)
[2018-03-05] MEDS ORDERED: Oxytocin 30 Units/500ml Premix 30 UNITS/500 ML BAG IV.SIG PRN (20:29)
--- NOTE | 2018-03-06 07:44 | P.PNOB ---
Subjective Post op day: 1 Interval history: 27 y/o delivered at 40/6. POD #1 s/p C/S. Pain is well-controlled, minimal vaginal bleeding. Vitals stable overnight. Has not eaten since yesterday, due to not having appetite and having nausea last night, vomited x1. Improved w/ Zofran. Willing to eat breakfast this morning, no current nausea or vomiting. States she hasn't passed gas or made BM. Is able to walk to the bathroom w/o problems. Baby is currently in the NICU. Objective Vital Signs/I&O: Vital Signs 03/05/18 07:43 03/05/18 09:11 03/05/18 09:14 Temperature 97.6 F Pulse Rate 80 74 62 Respiratory Rate 20 18 Blood Pressure 102/63 124/74 120/75 03/05/18 09:45 03/05/18 10:00 03/05/18 10:15 Temperature Pulse Rate 63 72 75 Respiratory Rate 18 18 18 Blood Pressure 123/74 92/49 L 91/47 L 03/05/18 10:45 03/05/18 11:55 03/05/18 12:15 Temperature Pulse Rate 73 71 65 Respiratory Rate 18 Blood Pressure 104/49 L 96/51 L 106/65 03/05/18 12:30 03/05/18 13:10 03/05/18 14:00 Temperature 97.9 F Pulse Rate 74 65 Respiratory Rate 18 18 Blood Pressure 107/54 L 99/52 L 03/05/18 14:10 03/05/18 14:30 03/05/18 16:00 Temperature 97.9 F 97.7 F Pulse Rate 68 87 Respiratory Rate 18 18 Blood Pressure 112/71 110/56 L 03/05/18 16:15 03/05/18 16:25 03/05/18 16:30 Temperature Pulse Rate 91 H 87 Respiratory Rate 18 0 L 18 Blood Pressure 107/54 L 110/59 L 03/05/18 16:45 03/05/18 17:00 03/05/18 18:05 Temperature 98.2 F Pulse Rate 84 81 82 Respiratory Rate 18 18 16 Blood Pressure 112/61 115/66 116/59 L 03/05/18 20:25 03/05/18 22:45 03/06/18 03:45 Temperature 99.3 F 99.0 F 99.4 F Pulse Rate 75 88 95 H Respiratory Rate 18 18 Blood Pressure 112/62 105/50 L 105/69 Intake & Output 03/05/18 03/06/18 03/06/18 18:59 06:59 18:59 Intake Total 1000 / 1000 Balance 1000 / 1000 Intake: IV 1000 / 1000 LR 1000 mL Inj 1,000 ML @ 125 1000 / 1000 mls/hr IV.CONT .Q8H ENDY Rx#: [id number] Result Diagrams: 03/06/18 07:41 Objective Remarks: GENERAL: Well-nourished, well-developed patient. CARDIOVASCULAR: Regular rate and rhythm without murmurs, gallops, or rubs. RESPIRATORY: Breath sounds equal bilaterally. No accessory muscle use. ABDOMEN/GI: Abdomen soft, non-tender, bowel sounds present. Incision: Clean, dry and intact. Fundus: Firm, non-tender at umbilicus. GENITOURINARY: Light to moderate bleeding. EXTREMITIES: Edema at the ankles noted; LE non-tender, without signs of DVT. Medications and IVs: Active Medications Acetaminophen (Tylenol) 650 mg PO Q6H PRN PRN Reason: PAIN SCALE 1 TO 2 Diphenhydramine HCl (Benadryl Inj) 25 mg IV.PUSH Q6H PRN PRN Reason: MILD TO MODERATE ITCHING Stop: 03/06/18 17:56 Diphenhydramine HCl (Benadryl) 50 mg PO Q6H PRN PRN Reason: MILD TO MODERATE ITCHING Stop: 03/06/18 17:56 Ephedrine Sulfate (Ephedrine/Ns Syringe) 10 mg IV.PUSH UNSCH PRN PRN Reason: SEE LABEL COMMENTS Stop: 03/06/18 09:45 Lactated Ringer's (Lr 1000 Ml Inj) 1,000 mls @ 100 mls/hr IV.CONT .Q10H ENDY Stop: 03/06/18 16:28 Last Admin: 03/05/18 20:38 Dose: 100 mls/hr Oxytocin (Pitocin 30 Units/Ns 500 Ml Premix) 30 units in 500 mls @ 100 mls/hr IV.SIG PRN PRN PRN Reason: Heavy bleeding Stop: 03/06/18 20:28 Ibuprofen (Motrin) 600 mg PO Q6HR PRN PRN Reason: cramping Ketorolac Tromethamine (Toradol Inj) 30 mg IM Q6H PRN PRN Reason: SEE LABEL COMMENTS Ketorolac Tromethamine (Toradol Inj) 60 mg IM ONCE PRN PRN Reason: SEE LABEL COMMENTS Stop: 03/06/18 15:28 Miscellaneous Information ([facility]) 1 each OTHER UNSCH PRN PRN Reason: SEE LABEL COMMENTS Stop: 03/06/18 17:56 Miscellaneous Information ([facility]) 1 each OTHER UNSCH PRN PRN Reason: SEE LABEL COMMENTS Stop: 03/06/18 17:56 Naloxone HCl (Narcan Inj) 0.4 mg IV.PUSH UNSCH PRN PRN Reason: SEE LABEL COMMENTS Stop: 03/06/18 17:56 Ondansetron HCl (Zofran Inj) 4 mg IV.PUSH Q6H PRN PRN Reason: NAUSEA OR VOMITING Last Admin: 03/06/18 00:05 Dose: 4 mg Oxycodone/Acetaminophen (Percocet 5/325 Mg) 1 tab PO Q4H PRN PRN Reason: PAIN SCALE 3 TO 5 Oxycodone/Acetaminophen (Percocet 5/325 Mg) 2 tab PO Q4H PRN PRN Reason: PAIN SCALE 6 TO 10 Senna/Docusate Sodium (Bren-Colace) 2 tab PO Q12H PRN PRN Reason: CONSTIPATION Simethicone (Mylicon Chew) 80 mg PO QID PRN PRN Reason: FLATULENCE Sodium Chloride (Ns Flush) 2 ml IV.FLUSH BID ENDY Last Admin: 03/05/18 20:08 Dose: Not Given Sodium Chloride (Ns Flush) 2 ml IV.FLUSH PRN PRN PRN Reason: FLUSH AFTER USING IV ACCESS Last Admin: 03/06/18 00:06 Dose: 2 ml Assessment and Plan - Diagnosis (1) Delivery by emergency section Code(s): O82 - Encounter for delivery without indication Status: Acute - Plan Patient is a 27-year-old delivered at 40 weeks and 6 days. Patient is day 1 after C/S. Patient was counseled to do 6 weeks of pelvic rest. Patient was counseled to follow up in 1 week post op. Plans to feed via breast. --AF VSS --Continue routine care - F/u post-op CBC --Motrin and Percocet when necessary for pain --Encourage OOB --Pelvic rest for 6 weeks will need follow-up appointment after 1 week --Regular diet ordered this AM --Contraception: not sure at this time --Anticipate discharge 1-2 days - Attending Attestation The patient was seen and examined by me and I participated in all choi decision making. Continue routine and postoperative care. SMS
[2018-03-06 08:02] LABS: Baso % (Auto) 0.1 % (0.0-2.0); Hematocrit 30.8 % (35.0-46.0); Hemoglobin 10.4 gm/dL (11.6-15.3); Lymph # (Auto) 1.6 th/mm3 (1.0-4.8); Mean Corpuscular HGB Conc 33.8 % (32.0-36.0); Mean Corpuscular Hemoglobin 29.4 pg (27.0-34.0); Mean Corpuscular Volume 86.8 fL (80.0-100.0); Mean Platelet Volume 8.3 fL (7.0-11.0); Mono % (Auto) 5.8 % (0.0-8.0); Neut # (Auto) 14.7 th/mm3 (1.8-7.7); Neut % (Auto) 85.1 % (16.0-70.0); Platelet Count 224 th/mm3 (150-450); Red Blood Count 3.55 mil/mm3 (4.00-5.30); Red Cell Distribution Width 15.4 % (11.6-17.2); White Blood Count 17.3 th/mm3 (4.0-11.0)
--- NOTE | 2018-03-06 09:41 | MP ---
cc: Nicole Solomon MD DATE OF OPERATION: 03/05/2018 PREOPERATIVE DIAGNOSES: 1. Intrauterine at 40.6. 2. Postdates. 3. Size less than dates. 4. Nonreassuring status. POSTOPERATIVE DIAGNOSES: 1. Intrauterine at 40.6. 2. Postdates. 3. Size less than dates. 4. Nonreassuring status. PROCEDURE PERFORMED: Primary low transverse section with 2-layer closure and repair of a 3 cm left lower uterine segment extension. DESCRIPTION OF FINDINGS: Viable male in the cephalic presentation. Apgars 8/8 with cord pH 7.227. The patient had grossly normal maternal anatomy with grossly normal fallopian tubes, uterus, and ovaries. SURGEON: Nicole Solomon MD. ASSISTANTS: Dr. Paresh Del Valle and Vanesa Baker. SPECIMENS: Placenta. ESTIMATED BLOOD LOSS: 750 mL. URINE OUTPUT: 75 mL clear urine at the end of the procedure. INDICATIONS: The patient is a 27-year-old , who presented for postdates induction of labor. Her labor progressed well; however, she was noted to have several episodes of decelerations. These all resolved with standard resuscitative measures but the patient subsequently had an 8-minute episode of bradycardia. This was resolved but followed by another bradycardic episode that did not respond to standard resuscitative measures. The decision was made to proceed with a stat delivery for indications. PROCEDURE DESCRIPTION: After obtaining informed consent with risks, benefits, and alternatives previously discussed at length and reexplained to patient that include but are not limited to pain; infection; bleeding; injury to other organs such as bladder, bowels, nerves, vessels; injury to the baby; need for repeat operation; need for blood transfusion; need for hysterectomy; wound infection/breakdown; and other possible complications, the patient was taken to the operating room with IV fluids running and a Uriostegui catheter in place. Her epidural was redosed and adequate anesthesia confirmed. Betadine was splashed and the patient quickly draped. A timeout procedure was rapidly performed and adequate anesthesia confirmed. After once again confirming adequate anesthesia, a Pfannenstiel skin incision was made with the scalpel and carried down to the level of the fascia. The fascia was nicked in the midline with the scalpel and the fascial incision extended laterally. The fascia was dissected off of the underlying rectus muscles superiorly in a blunt fashion. The Patrice clamps were applied to the inferior aspect of the fascial incision which was dissected off the underlying rectus muscle sharply with the curved Dumont scissors. The peritoneum was in the midline, and the peritoneum entered bluntly. The peritoneal incision was extended bluntly. The [place] self-containing wound retractor was placed and the lower uterine segment visualized. The lower uterine segment was thinned with the scalpel and the hysterotomy created bluntly. The hysterotomy was extended bluntly. The vertex was elevated to the level of the hysterotomy and the head delivered atraumatically followed by atraumatic delivery of the remainder of the . The cord was doubly clamped and cut and the handed over to the awaiting neonatology team. A segment of umbilical cord was obtained for cord pH and cord blood was obtained for the nursery. The placenta was removed manually and the uterus was cleared of all clots and debris. A 3 cm left lower uterine extension was noted. The hysterotomy was repaired in a running locked fashion with #1 chromic. The left lower uterine segment extension was repaired with #0 chromic in a running locked fashion. The second layer was repaired with #0 Vicryl in an imbricating fashion. Excellent hemostasis was noted. No hematomas were noted. The uterine incision and left lower uterine segment were noted to be closed appropriately without evidence of active bleeding; however, the tissue at the site of the left lower uterine repair was noted to be very friable. The [place] self-containing wound retractor was removed and the hysterotomy and the repaired left lower uterine segment extension were reexamined. This tissue was not actively bleeding but was friable so Garett was placed to ensure excellent hemostasis. This area was reinspected and overall hemostasis was noted. The peritoneum was reapproximated with 2-0 Vicryl in a running fashion. The rectus muscles were examined and noted to be hemostatic. The fascia was reapproximated with #1 Vicryl in a running fashion and noted to be without defect. The subcutaneous tissue was irrigated with warm normal saline and noted to be hemostatic. The subcutaneous tissue was reapproximated with 2-0 Vicryl in an interrupted fashion. The skin edges were reapproximated with 3-0 Monocryl in a subcuticular fashion. Excellent hemostasis and cosmesis were obtained. I performed the entire procedure. An x-ray was obtained, which revealed no intraabdominal instruments or laparotomy sponges. The patient was taken to the PACU in stable condition. MD MARIANO Russ/wesly/german , 07:19 AM , 07:29 AM RICKEY
[2018-03-06] MEDS: Ibuprofen 600 MG Tablet PO PRN ×2 (13:39→21:17)
--- NOTE | 2018-03-07 08:02 | P.PNOB ---
Subjective Post op day: 2 Interval history: 27 y/o delivered at 40/6. POD #2 s/p C/S for distress. Pain is well- controlled, minimal vaginal bleeding. Vitals stable overnight. Good appetite, no nausea or vomiting, no dysuria. Incision not draning. +flatus, no bowel movement. Ambulating appropriately. No SOB or cough. Doing well this morning, no complaints. Objective Vital Signs/I&O: Vital Signs 03/06/18 08:30 03/06/18 12:20 03/06/18 21:17 Temperature 98.6 F 98.4 F 98.1 F Pulse Rate 86 87 103 H Respiratory Rate 18 18 20 Blood Pressure 101/59 L 103/61 104/74 Result Diagrams: 03/06/18 07:41 Objective Remarks: GENERAL: Well-nourished, well-developed patient. CARDIOVASCULAR: Regular rate and rhythm without murmurs, gallops, or rubs. RESPIRATORY: Breath sounds equal bilaterally. No accessory muscle use. ABDOMEN/GI: Abdomen soft, non-tender, bowel sounds present. Incision: Clean, dry and intact. Fundus: Firm, non-tender at umbilicus. GENITOURINARY: Light to moderate bleeding. EXTREMITIES: No cyanosis or edema, non-tender, without signs of DVT. Medications and IVs: Active Medications Acetaminophen (Tylenol) 650 mg PO Q6H PRN PRN Reason: PAIN SCALE 1 TO 2 Ibuprofen (Motrin) 600 mg PO Q6HR PRN PRN Reason: cramping Last Admin: 03/06/18 21:17 Dose: 600 mg Ketorolac Tromethamine (Toradol Inj) 30 mg IM Q6H PRN PRN Reason: SEE LABEL COMMENTS Ondansetron HCl (Zofran Inj) 4 mg IV.PUSH Q6H PRN PRN Reason: NAUSEA OR VOMITING Last Admin: 03/06/18 00:05 Dose: 4 mg Oxycodone/Acetaminophen (Percocet 5/325 Mg) 1 tab PO Q4H PRN PRN Reason: PAIN SCALE 3 TO 5 Last Admin: 03/06/18 21:17 Dose: 1 tab Oxycodone/Acetaminophen (Percocet 5/325 Mg) 2 tab PO Q4H PRN PRN Reason: PAIN SCALE 6 TO 10 Senna/Docusate Sodium (Bren-Colace) 2 tab PO Q12H PRN PRN Reason: CONSTIPATION Simethicone (Mylicon Chew) 80 mg PO QID PRN PRN Reason: FLATULENCE Sodium Chloride (Ns Flush) 2 ml IV.FLUSH BID ENDY Last Admin: 03/06/18 21:17 Dose: Not Given Sodium Chloride (Ns Flush) 2 ml IV.FLUSH PRN PRN PRN Reason: FLUSH AFTER USING IV ACCESS Last Admin: 03/06/18 00:06 Dose: 2 ml Assessment and Plan - Diagnosis (1) Delivery by emergency section Code(s): O82 - Encounter for delivery without indication Status: Acute - Plan Patient is a 27-year-old who is POD#2 s/p C/S. --AF VSS --Continue routine care --Motrin and Percocet when necessary for pain --Encourage OOB. Advised pelvic rest for 6 weeks. Will need f/u in 1 week for incision check. --Contraception: agreeable to Depot shot --Anticipate discharge tomorrow [facility] attending
[2018-03-07] MEDS: Ibuprofen 600 MG Tablet PO PRN ×3 (09:04→20:58)
[2018-03-07] MEDS: Senna/Docusate Sodium 8.6/50 MG Tablet PO PRN ×2 (09:05→20:58)
[2018-03-08] MEDS: Ibuprofen 600 MG Tablet PO PRN ×2 (03:00→15:16)
--- NOTE | 2018-03-08 08:33 | P.PNOB ---
Subjective Post op day: 3 Interval history: 27 y/o delivered at 40/6. POD #3 s/p C/S for distress. Pain is well- controlled, minimal vaginal bleeding. Vitals stable overnight. Good appetite, no nausea or vomiting. Incision not draining. +flatus, no bowel movement. Ambulating appropriately. No SOB or cough. Doing well this morning, no complaints. Objective Vital Signs/I&O: Vital Signs 03/07/18 20:00 Temperature 98.3 F Pulse Rate 62 Respiratory Rate 18 Blood Pressure 106/68 Result Diagrams: 03/06/18 07:41 Objective Remarks: GENERAL: Well-nourished, well-developed patient. CARDIOVASCULAR: Regular rate and rhythm without murmurs, gallops, or rubs. RESPIRATORY: Breath sounds equal bilaterally. No accessory muscle use. ABDOMEN/GI: Abdomen soft, non-tender, bowel sounds present. Incision: Clean, dry and intact. Fundus: Firm, non-tender at umbilicus. GENITOURINARY: Light to moderate bleeding. EXTREMITIES: No cyanosis or edema, non-tender, without signs of DVT. Medications and IVs: Active Medications Acetaminophen (Tylenol) 650 mg PO Q6H PRN PRN Reason: PAIN SCALE 1 TO 2 Ibuprofen (Motrin) 600 mg PO Q6HR PRN PRN Reason: cramping Last Admin: 03/08/18 03:00 Dose: 600 mg Ketorolac Tromethamine (Toradol Inj) 30 mg IM Q6H PRN PRN Reason: SEE LABEL COMMENTS Ondansetron HCl (Zofran Inj) 4 mg IV.PUSH Q6H PRN PRN Reason: NAUSEA OR VOMITING Last Admin: 03/06/18 00:05 Dose: 4 mg Oxycodone/Acetaminophen (Percocet 5/325 Mg) 1 tab PO Q4H PRN PRN Reason: PAIN SCALE 3 TO 5 Last Admin: 03/08/18 02:56 Dose: 1 tab Oxycodone/Acetaminophen (Percocet 5/325 Mg) 2 tab PO Q4H PRN PRN Reason: PAIN SCALE 6 TO 10 Senna/Docusate Sodium (Bren-Colace) 2 tab PO Q12H PRN PRN Reason: CONSTIPATION Last Admin: 03/07/18 20:58 Dose: 2 tab Simethicone (Mylicon Chew) 80 mg PO QID PRN PRN Reason: FLATULENCE Sodium Chloride (Ns Flush) 2 ml IV.FLUSH BID ENDY Last Admin: 03/07/18 20:01 Dose: Not Given Sodium Chloride (Ns Flush) 2 ml IV.FLUSH PRN PRN PRN Reason: FLUSH AFTER USING IV ACCESS Last Admin: 03/06/18 00:06 Dose: 2 ml Assessment and Plan - Diagnosis (1) Delivery by emergency section Code(s): O82 - Encounter for delivery without indication Status: Acute - Plan Patient is a 27-year-old who is POD#3 s/p C/S. D/C today. --AF VSS --Motrin and Percocet when necessary for pain to be taken outpatient --Encourage OOB. Advised pelvic rest for 6 weeks. F/u 1 week for incision check. --Contraception: declines at this time. --Planning to continue .
[2018-03-08 08:43] VITALS: TEMP 97.8
[2018-03-08 16:00] VITALS: BP 123/79; PULSE 88; RESP 17
== END 2018-03-08 15:37 | disposition home or self-care (01) ==
LOC: H2E 21:04 → H1EA 03-05 17:44
PROVIDERS: ADMIT Obstetrics & Gynecology; ATTEND Obstetrics & Gynecology

== ENCOUNTER 2018-04-12 23:06 | Observation (INO) ==
[2018-04-13] MEDS ORDERED: Sod Chloride 0.9% Inj 1,000 ML IV.CONT SCH (00:15)
[2018-04-13] MEDS ORDERED: Morphine Inj 4 MG/ML Vial IV.PUSH ONE (00:33)
--- NOTE | 2018-04-13 00:33 | XR ---
EXAM DATE: 04/13/2018 12:20 AM EDT AGE/SEX: 27 years / Female INDICATIONS: Lower chest pain starting today CLINICAL DATA: This is the patient's initial encounter. Patient reports that signs and symptoms have been present for 1 day and indicates a pain score of 8/10. MEDICAL/SURGICAL HISTORY: None. None. COMPARISON: No prior exams available for comparison. FINDINGS: A single AP view of the chest demonstrates the lungs to be symmetrically aerated without evidence of mass, infiltrate or effusion. The cardiomediastinal contours are unremarkable. Osseous structures a re intact. CONCLUSION: Negative examination. Electronically signed by: Spike Delgado MD 04/13/2018 12:32 AM EDT
[2018-04-13 00:34] LABS: Baso % (Auto) 0.4 % (0.0-2.0); Eos # (Auto) 0.2 th/mm3 (0.0-0.4); Eos % (Auto) 2.3 % (0.0-4.0); Hematocrit 33.3 % (35.0-46.0); Hemoglobin 10.9 gm/dL (11.6-15.3); Lymph # (Auto) 1.7 th/mm3 (1.0-4.8); Lymph % (Auto) 23.9 % (9.0-44.0); Mean Corpuscular HGB Conc 32.7 % (32.0-36.0); Mean Corpuscular Hemoglobin 27.4 pg (27.0-34.0); Mean Platelet Volume 7.9 fL (7.0-11.0); Mono # (Auto) 0.6 th/mm3 (0.0-0.9); Mono % (Auto) 8.5 % (0.0-8.0); Neut # (Auto) 4.6 th/mm3 (1.8-7.7); Neut % (Auto) 64.9 % (16.0-70.0); Platelet Count 281 th/mm3 (150-450); Red Blood Count 3.97 mil/mm3 (4.00-5.30); Red Cell Distribution Width 15.5 % (11.6-17.2); White Blood Count 7.1 th/mm3 (4.0-11.0)
[2018-04-13 00:44] LABS: Activated Partial Thrombo Time 26.2 sec (24.3-30.1); Bacteria,Urine Rare /hpf; Bilirubin,Urine Negative (Negative); Calcium Oxalate Crystals,Urine Occasional /hpf; Clarity,Urine Hazy (Clear); Color,Urine Yellow (Yellw/Straw); Glucose,Urine (UA) Negative (Negative); Leukocyte Esterase,Urine Large (Negative); Mucus,Urine Few /lpf (Occasional); Nitrite,Urine Negative (Negative); Prothrombin Time 10.2 sec (9.8-11.6); Specific Gravity,Urine 1.027 (1.002-1.035)
[2018-04-13 00:54] LABS: Albumin 2.9 g/dL (3.4-5.0); Anion Gap 9 meq/L (5-15); Aspartate Aminotransferase 44 U/L (15-37); Blood Urea Nitrogen 15 mg/dL (7-18); Calcium 8.3 mg/dL (8.5-10.1); Carbon Dioxide 26.4 meq/L (21.0-32.0); Chloride 106 meq/L (98-107); Glomerular Filtration Rate 87 mL/min (>89); Glucose,Random 109 mg/dL (74-106); Lipase 93 U/L (73-393); Sodium 141 meq/L (136-145)
--- NOTE | 2018-04-13 00:54 | ED ---
HPI General Chief Complaint: Abdominal Pain Stated Complaint: abd pain/back pain Time Seen by Provider: 04/13/18 00:08 Source: patient and family Mode of arrival: ambulatory Limitations: no limitations History of Present Illness complaint: abdominal pain Onset (ago): hour(s) Pain Consistency: constant Location: RUQ and epigastric Severity: severe Severity scale (1-10): 8 Quality: stabbing and sharp Radiation: RUQ, epigastric and other (Upper back and chest "takes her breath away") Migration to: RUQ, epigastric and other (upper back) Relieving factors: nothing Exacerbating factors: nothing Context: other (1 month post ) Associated symptoms: nausea Treatments prior to arrival: other (none) Related Data Home Medications Medication Instructions Recorded Confirmed No Known Home Medications 04/12/18 04/12/18 Allergies Allergy/AdvReac Type Severity Reaction Status Date / Time No Known Allergies Allergy Verified 04/12/18 23:16 Review of Systems ROS: all other systems reviewed are negative [facility] Medical History Medical History Patient denies medical problems (Acute) Surgical History Surgical History Hx of section (Acute) Social History Social History Second Hand Smoke Exposure: No Smoking Status: Never smoker How Often Do You Have a Drink Containing Alcohol: Never Recent Travel in [place] within the Last 8 Weeks: No Recent Out of Country Travel within the Last 8 Weeks: No Immunization History Tetanus Immunization: Unsure Hx Influenza Vaccine This Season: No Exam Narrative Exam Narrative: GENERAL: Well-nourished, well-developed patient. SKIN: Focused skin assessment warm/dry. HEAD: Normocephalic. EYES: No scleral icterus. No injection or drainage. NECK: Supple, trachea midline. No JVD or lymphadenopathy. CARDIOVASCULAR: Regular rate and rhythm without murmurs, gallops, or rubs. RESPIRATORY: Breath sounds equal bilaterally. No accessory muscle use. GASTROINTESTINAL: Abdomen soft, epigastric tenderness greater than right upper quadrant tenderness greater than left upper quadrant tenderness, nondistended. MUSCULOSKELETAL: No cyanosis, or edema. BACK: Nontender without obvious deformity. No CVA tenderness. Course Initial Documented Vital Signs Temperature 97.8 F 04/12/18 23:12 Pulse Rate 96 H 04/12/18 23:12 Respiratory Rate 20 04/12/18 23:12 Blood Pressure 113/63 04/12/18 23:12 Pulse Oximetry 100 04/12/18 23:12 Last Documented Vital Signs Temperature 97.8 F 04/12/18 23:12 Pulse Rate 84 04/13/18 05:44 Respiratory Rate 16 04/13/18 05:44 Blood Pressure 118/65 04/13/18 05:44 Pulse Oximetry 99 04/13/18 05:44 Medical Decision Making MDM Narrative Medical decision making narrative: 27-year-old female presents to the emergency department for severe back pain associated with shortness of breath and epigastric pain. Nausea no hematemesis no coffee-ground emesis no melena or hematochezia no fever chills. Patient is one-month . Patient is breast-feeding and formula feeding. No history of gallbladder disease peptic ulcer disease gastritis or pancreatitis. Patient has noted shortness of breath with inspiratory effort and painful breathing as well as epigastric pain. Patient has reproducible epigastric pain which is greater than right upper quadrant and left upper quadrant pain no clinical Key sign at this time. Patient placed on alarm security or surveillance monitor IV access obtained specimens collected and sent for resulting concern for PE based on her complaint of shortness of breath and pleuritic pain however is suspicious that this is biliary colic or cholecystitis. Also consider peptic ulcer disease gastritis. Lab values resulted. D-dimer is not significantly elevated however patient could with deep breathing so proceed with CT pulmonary angiogram and CT abdomen pelvis to evaluate abdominal pain as well as rule out pulmonary embolism CT bony injury was negative for PE CT abdomen pelvis shows gallstone with gallbladder wall thickening [place] patient will be admitted for cholecystitis. Patient's case discussed with medicine service for admission graciously admitted by Dr. Newell Urine test is negative Patient identified to have abnormal urinalysis consistent patient given Rocephin Medical Screen Exam Complete: Yes Emergency Medical Condition: Yes Lab Data Result diagrams: 04/13/18 00:25 04/13/18 00:25 POC Results POC Urine Results Negative Lab Results 04/13/18 04/13/18 04/13/18 Range/Units 00:25 00:25 00:25 WBC 7.1 (4.0-11.0) th/mm3 RBC 3.97 L (4.00-5.30) mil/mm3 Hgb 10.9 L (11.6-15.3) gm/dL Hct 33.3 L (35.0-46.0) % MCV 84.0 (80.0-100.0) fL MCH 27.4 (27.0-34.0) pg MCHC 32.7 (32.0-36.0) % RDW 15.5 (11.6-17.2) % Plt Count 281 (150-450) th/mm3 MPV 7.9 (7.0-11.0) fL Neut % (Auto) 64.9 (16.0-70.0) % Lymph % (Auto) 23.9 (9.0-44.0) % [place] % (Auto) 8.5 H (0.0-8.0) % Eos % (Auto) 2.3 (0.0-4.0) % Baso % (Auto) 0.4 (0.0-2.0) % Neut # (Auto) 4.6 (1.8-7.7) th/mm3 Lymph # (Auto) 1.7 (1.0-4.8) th/mm3 [place] # (Auto) 0.6 (0.0-0.9) th/mm3 Eos # (Auto) 0.2 (0.0-0.4) th/mm3 Baso # (Auto) 0.0 (0.0-0.2) th/mm3 WBC Differential . Differential Comment Auto diff final PT 10.2 (9.8-11.6) sec INR 1.0 Ratio APTT 26.2 (24.3-30.1) sec D-Dimer Quant (PE/DVT) (0.00-0.50) mg/L FEU Sodium 141 (136-145) meq/L Potassium 4.0 (3.5-5.1) meq/L Chloride 106 (98-107) meq/L Carbon Dioxide 26.4 (21.0-32.0) meq/L Anion Gap 9 (5-15) meq/L BUN 15 (7-18) mg/dL Creatinine 0.79 (0.50-1.00) mg/dL Estimated GFR 87 L (>89) mL/min Random Glucose 109 H (74-106) mg/dL Calcium 8.3 L (8.5-10.1) mg/dL Total Bilirubin 0.3 (0.2-1.0) mg/dL AST 44 H (15-37) U/L ALT 30 (10-53) U/L Alkaline Phosphatase 95 (45-117) U/L Troponin I Less than 0.02 L (0.02-0.05) ng/mL Total Protein 7.2 (6.4-8.2) g/dL Albumin 2.9 L (3.4-5.0) g/dL Lipase 93 (73-393) U/L Urine Color (Yellw/Straw) Urine Clarity (Clear) Urine pH (5.0-8.5) Ur Specific [place] (1.002-1.035) Urine Protein (Neg-Trace) mg/dL Urine Glucose (UA) (Negative) mg/dL Urine Ketones (Negative) mg/dL Urine Occult Blood (Negative) Urine Nitrate (Negative) Urine Bilirubin (Negative) Urine Urobilinogen (Less than 2) mg/dL Ur Leukocyte Esterase (Negative) Urine RBC (0-3) /hpf Urine WBC (0-5) /hpf Calcium Oxalate Crystal (None) /hpf Urine Bacteria (None) /hpf Urine Mucus (Occasional) /lpf Micro UA Comment Ur Microscopic Review Urine Culture Comments 04/13/18 04/13/18 Range/Units 00:25 00:25 WBC (4.0-11.0) th/mm3 RBC (4.00-5.30) mil/mm3 Hgb (11.6-15.3) gm/dL Hct (35.0-46.0) % MCV (80.0-100.0) fL MCH (27.0-34.0) pg MCHC (32.0-36.0) % RDW (11.6-17.2) % Plt Count (150-450) th/mm3 MPV (7.0-11.0) fL Neut % (Auto) (16.0-70.0) % Lymph % (Auto) (9.0-44.0) % [place] % (Auto) (0.0-8.0) % Eos % (Auto) (0.0-4.0) % Baso % (Auto) (0.0-2.0) % Neut # (Auto) (1.8-7.7) th/mm3 Lymph # (Auto) (1.0-4.8) th/mm3 [place] # (Auto) (0.0-0.9) th/mm3 Eos # (Auto) (0.0-0.4) th/mm3 Baso # (Auto) (0.0-0.2) th/mm3 WBC Differential Differential Comment PT (9.8-11.6) sec INR Ratio APTT (24.3-30.1) sec D-Dimer Quant (PE/DVT) 0.63 H (0.00-0.50) mg/L FEU Sodium (136-145) meq/L Potassium (3.5-5.1) meq/L Chloride (98-107) meq/L Carbon Dioxide (21.0-32.0) meq/L Anion Gap (5-15) meq/L BUN (7-18) mg/dL Creatinine (0.50-1.00) mg/dL Estimated GFR (>89) mL/min Random Glucose (74-106) mg/dL Calcium (8.5-10.1) mg/dL Total Bilirubin (0.2-1.0) mg/dL AST (15-37) U/L ALT (10-53) U/L Alkaline Phosphatase (45-117) U/L Troponin I (0.02-0.05) ng/mL Total Protein (6.4-8.2) g/dL Albumin (3.4-5.0) g/dL Lipase (73-393) U/L Urine Color Yellow (Yellw/Straw) Urine Clarity Hazy H (Clear) Urine pH 5.0 (5.0-8.5) Ur Specific [place] 1.027 (1.002-1.035) Urine Protein Negative (Neg-Trace) mg/dL Urine Glucose (UA) Negative (Negative) mg/dL Urine Ketones Trace H (Negative) mg/dL Urine Occult Blood Moderate H (Negative) Urine Nitrate Negative (Negative) Urine Bilirubin Negative (Negative) Urine Urobilinogen 2.0 H (Less than 2) mg/dL Ur Leukocyte Esterase Large H (Negative) Urine RBC 15 H (0-3) /hpf Urine WBC 38 H (0-5) /hpf Calcium Oxalate Crystal Occasional H (None) /hpf Urine Bacteria Rare H (None) /hpf Urine Mucus Few H (Occasional) /lpf Micro UA Comment Culture indicated Ur Microscopic Review Not Reportable Urine Culture Comments Culture indicated Imaging Data Radiologist's impression: Chest X-Ray 04/13/18 00:08 CONCLUSION: Negative examination. Abdomen/Pelvis CT 04/13/18 01:54 CONCLUSION: Gallstone and mild gallbladder wall thickening. Chest CTA 04/13/18 01:54 CONCLUSION: This study is negative for pulmonary embolism. Discharge Plan Discharge Disposition Patient Disposition: 30 Still Patient Discharge Condition Condition: Stable Discharge Details Diagnosis: Cholecystitis Physicians Team ED Provider: Alicia Malhotra Primary Care Provider: Primary Care Niyah Davey Attending Provider: Nidhi Newell Discharge Interventions Interventions: Vital Signs Last Done: 04/13/18 05:44 Status ED Status: Admitted Patient
[2018-04-13 00:59] LABS: Alanine Aminotransferase 30 U/L (10-53); Alkaline Phosphatase 95 U/L (45-117); Total Protein 7.2 g/dL (6.4-8.2)
--- NOTE | 2018-04-13 05:35 | CT ---
EXAM DATE: 04/13/2018 4:12 AM EDT AGE/SEX: 27 years / Female INDICATIONS: Chest pain. CLINICAL DATA: This is the patient's initial encounter. Patient reports that signs and symptoms have been present for 1 day and indicates a pain score of 5/10. MEDICAL/SURGICAL HISTORY: None. section. RADIATION DOSE: 26.59 CTDI (mGy) ; Combined studies COMPARISON: No prior exams available for comparison. TECHNIQUE: Volumetric scanning was performed using a multi-row detector CT scanner during bolus infu yahir of 100 ml Omnipaque 350 (iohexol) nonionic water-soluble contrast as a cumulative dose for mult iple exams. The data was post processed with a variety of visualization algorithms including full vol ume maximum intensity projection and sliding thin slab reformation. Using automated exposure control and adjustment of the mA and/or kV according to patient size, radiation dose was kept as low as reas onably achievable to obtain optimal diagnostic quality images. DICOM format image data is available electronically for review and comparison. FINDINGS: Pulmonary Arteries: No filling defects are seen in the pulmonary arteries out to the subsegmental ve ssels. The left and right pulmonary arteries are normal in diameter. Lung: No infiltrates seen. Effusion: None. Mediastinum: No evidence of mediastinal or hilar adenopathy. Other: The axilla is unremarkable. CONCLUSION: This study is negative for pulmonary embolism. Electronically signed by: Spike Delgado MD 04/13/2018 5:34 AM EDT
--- NOTE | 2018-04-13 05:50 | CT ---
EXAM DATE: 04/13/2018 4:12 AM EDT AGE/SEX: 27 years / Female INDICATIONS: Right upper quadrant pain. CLINICAL DATA: This is the patient's initial encounter. Patient reports that signs and symptoms have been present for 1 day and indicates a pain score of 5/10. MEDICAL/SURGICAL HISTORY: None. section. ORAL CONTRAST: No oral contrast ingested. RADIATION DOSE: 26.59 CTDI (mGy) ; Combined studies COMPARISON: No prior exams available for comparison. TECHNIQUE: Multiple contiguous axial images were obtained through the abdomen and pelvis following b olus infusion of 100 ml Omnipaque 350 (iohexol) nonionic water-soluble contrast as a cumulative dos e for multiple exams. No oral contrast ingested. Using automated exposure control and adjustment of the mA and/or kV according to patient size, radiation dose was kept as low as reasonably achievable t o obtain optimal diagnostic quality images. DICOM format image data is available electronically for review and comparison. FINDINGS: Lower Lungs: The visualized lower lungs are clear. Liver: No evidence of liver mass or biliary ductal dilatation. Gallbladder is minimally distended wit h at least one calcified stone in the fundus region. Mild diffuse gallbladder wall thickening. Spleen: Homogeneous density without enlargement. Pancreas: Unremarkable without mass or calcification. Kidneys: Normal in size and shape. No evidence of mass or hydronephrosis. Adrenal Glands: Unremarkable. Aorta: The aorta and proximal iliac vessels are grossly unremarkable without aneurysmal dilation. Bowel/Mesentery: The bowel loops are grossly unremarkable. The cecum and sigmoid colon have a normal configuration. Abdominal Wall: Intact. Retroperitoneum: No evidence of adenopathy in the retrocrural, para-aortic, or deep pelvic regions. Bladder: Contours are smooth. Reproductive Organs: No abnormal masses or calcifications seen. Inguinal: The inguinal region is unremarkable without evidence of adenopathy. Bony Structures: Unremarkable. CONCLUSION: Gallstone and mild gallbladder wall thickening. Electronically signed by: Spike Delgado MD 04/13/2018 5:49 AM EDT
[2018-04-13] MEDS ORDERED: Piperacil/Tazo 4.5 GM Premix 4.5 GM/100 ML BAG IV.SIG ONE (06:09)
[2018-04-13] MEDS ORDERED: Acetaminophen 325 MG Tablet PO PRN (06:33)
[2018-04-13] MEDS ORDERED: Bisacodyl 10 MG Supp RECTAL PRN ×2 (06:33→20:32)
[2018-04-13] MEDS ORDERED: Morphine Sulfate Inj 2 MG/ML Vial IV.PUSH PRN (06:36)
[2018-04-13] MEDS: Sod Chloride 0.9% Inj 1,000 ML IV.CONT SCH ×2 (06:49→20:17)
--- NOTE | 2018-04-13 10:48 | P.CONGS ---
[facility] Gen Surgery Consult Note Consult date: 04/13/18 Reason for consult: gallstones Requesting physician: Christelle Solano Narrative: This is a 27 year old female who is about 5 weeks s/p who presented to the ED with abdominal pain that began yesterday. She reports associated nausea without vomiting. She denies any fevers or chills. She was seen in September of [address] Bruno and diagnosed with symptomatic cholelithiasis. Since she was still early in her and not a safe time to operate and she was treated non surgically. A CT abdomen/pelvis was obtained which shows gallstones and mild gallbladder wall thickening. A CTA was obtained which is negative for pulmonary embolism. She has a normal WBC. Her LFTs are normal except for a slightly elevated AST. Her lipase is normal at 93. A General Surgery consultation has been requested. Review of Systems All other systems reviewed negative except as stated in [facility] - History History Provided By: Patient - Medical History Medical History: Medical History (Last Reviewed 04/13/18 @ 10:46 by KELY Snyder) Patient denies medical problems - Surgical History Surgical History: Surgical History (Last Reviewed 04/13/18 @ 10:46 by KELY Snyder) Hx of section - Tobacco History Second Hand Smoke Exposure: No Smoking Status: Never smoker - Alcohol History How Often Do You Have a Drink Containing Alcohol: Never - Substance Use History Substance History: No History of Abuse - Travel History Recent Travel in the [place] Within the Last 8 Weeks: No Recent Travel Out of the Country Within the Last 8 Weeks: No - Immunization History Tetanus Immunization: Unsure Hx Influenza Vaccine This Season: No Medications and Allergies Allergies Allergy/AdvReac Type Severity Reaction Status Date / Time No Known Allergies Allergy Verified 04/12/18 23:16 Home Medications Medication Instructions Recorded Confirmed Type No Known Home Medications 04/12/18 04/12/18 History Active Medications: Active Medications Acetaminophen (Tylenol) 650 mg PO Q4H PRN PRN Reason: Temp > 100.4 Bisacodyl (Dulcolax Supp) 10 mg RECTAL DAILY PRN PRN Reason: SEVERE CONSITIPATION Piperacillin/Tazobactam/Dextrose (Zosyn 3.375 Gm Premix) 50 mls @ 100 mls/hr IV.SIG Q6H ENDY Sodium Chloride (Ns Inj) 1,000 mls @ 100 mls/hr IV.CONT .Q10H [facility] Last Admin: 04/13/18 06:49 Dose: 100 mls/hr Morphine Sulfate (Morphine Inj) 2 mg IV.PUSH Q3H PRN PRN Reason: pain > 4 Ondansetron HCl (Zofran Inj) 4 mg IV.PUSH Q6H PRN PRN Reason: NAUSEA OR VOMITING Sennosides (Senokot) 17.2 mg PO Q12H PRN PRN Reason: Moderate Constipation Sodium Chloride (Ns Flush) 2 ml IV.FLUSH PRN PRN PRN Reason: FLUSH AFTER USING IV ACCESS Exam Vital signs: Vital Signs 04/12/18 23:12 04/13/18 00:29 04/13/18 01:04 Temperature 97.8 F Pulse Rate 96 H 81 Respiratory Rate 20 16 16 Blood Pressure 113/63 Pulse Oximetry 100 100 04/13/18 05:44 04/13/18 08:00 Temperature 97.9 F Pulse Rate 84 89 Respiratory Rate 16 16 Blood Pressure 118/65 98/59 L Pulse Oximetry 99 99 Intake & Output 04/12/18 04/13/18 04/13/18 18:59 06:59 18:59 Intake Total 1100 / 1100 100 / 100 Balance 1100 / 1100 100 / 100 Weight 90 kg Intake: IV 1100 / 1100 100 / 100 NS Inj 1,000 ML @ 125 mls/hr IV 1000 / 1000 .CONT .Q8H [facility] Rx#:[id number] Zosyn 4.5 GM Premix 4.5 gm In 100 / 100 100 ml @ 200 mls/hr IV.SIG ONCE ONE Rx#:[id number] Rocephin Inj 1,000 MG In NS Inj 100 / 100 100 ML @ 200 mls/hr IV.SIG ONCE ONE Rx#:[id number] Narrative: GENERAL: Alert and awake female resting in bed in no acute distress. SKIN: Warm and dry. HEAD: Atraumatic. Normocephalic. EYES: Pupils equal and round. No scleral icterus. No injection or drainage. ENT: No nasal bleeding or discharge. Mucous membranes pink and moist. NECK: Trachea midline. CARDIOVASCULAR: Regular rate and rhythm. RESPIRATORY: No accessory muscle use. Clear to auscultation. Breath sounds equal bilaterally. GASTROINTESTINAL: Abdomen soft, nondistended. Obese. RUQ tenderness with palpation and with deep inspiration. Well healing low transverse scar. MUSCULOSKELETAL: Extremities without clubbing or cyanosis. No obvious deformities. Moderate edema in BLE. NEUROLOGICAL: Awake and alert. No obvious cranial nerve deficits. Motor grossly within normal limits. Five out of 5 muscle strength in the arms and legs. Normal speech. PSYCHIATRIC: Appropriate mood and affect; insight and judgment normal. - Routine Respiratory Exam Present: CTA bilaterally - Routine Cardiovascular Exam Present: RRR - Routine Abdominal Exam Present: soft, tenderness (RUQ) Results - Labs 04/14/18 05:34 04/14/18 05:34 Laboratory Results WBC 7.1 th/mm3 (4.0-11.0) 04/13/18 00:25 RBC 3.97 mil/mm3 (4.00-5.30) L 04/13/18 00:25 Hgb 10.9 gm/dL (11.6-15.3) L 04/13/18 00:25 Hct 33.3 % (35.0-46.0) L 04/13/18 00:25 MCV 84.0 fL (80.0-100.0) 04/13/18 00:25 MCH 27.4 pg (27.0-34.0) 04/13/18 00:25 MCHC 32.7 % (32.0-36.0) 04/13/18 00:25 RDW 15.5 % (11.6-17.2) 04/13/18 00:25 Plt Count 281 th/mm3 (150-450) 04/13/18 00:25 MPV 7.9 fL (7.0-11.0) 04/13/18 00:25 Neut % (Auto) 64.9 % (16.0-70.0) 04/13/18 00:25 Lymph % (Auto) 23.9 % (9.0-44.0) 04/13/18 00:25 [place] % (Auto) 8.5 % (0.0-8.0) H 04/13/18 00:25 Eos % (Auto) 2.3 % (0.0-4.0) 04/13/18 00:25 Baso % (Auto) 0.4 % (0.0-2.0) 04/13/18 00:25 Neut # (Auto) 4.6 th/mm3 (1.8-7.7) 04/13/18 00:25 Lymph # (Auto) 1.7 th/mm3 (1.0-4.8) 04/13/18 00:25 [place] # (Auto) 0.6 th/mm3 (0.0-0.9) 04/13/18 00:25 Eos # (Auto) 0.2 th/mm3 (0.0-0.4) 04/13/18 00:25 Baso # (Auto) 0.0 th/mm3 (0.0-0.2) 04/13/18 00:25 WBC Differential . 04/13/18 00:25 Differential Comment Auto diff final 04/13/18 00:25 PT 10.2 sec (9.8-11.6) 04/13/18 00:25 INR 1.0 Ratio 04/13/18 00:25 APTT 26.2 sec (24.3-30.1) 04/13/18 00:25 D-Dimer Quant (PE/DVT) 0.63 mg/L FEU (0.00-0.50) H 04/13/18 00:25 Sodium 141 meq/L (136-145) 04/13/18 00:25 Potassium 4.0 meq/L (3.5-5.1) 04/13/18 00:25 Chloride 106 meq/L (98-107) 04/13/18 00:25 Carbon Dioxide 26.4 meq/L (21.0-32.0) 04/13/18 00:25 Anion Gap 9 meq/L (5-15) 04/13/18 00:25 BUN 15 mg/dL (7-18) 04/13/18 00:25 Creatinine 0.79 mg/dL (0.50-1.00) 04/13/18 00:25 Estimated GFR 87 mL/min (>89) L 04/13/18 00:25 Random Glucose 109 mg/dL (74-106) H 04/13/18 00:25 Calcium 8.3 mg/dL (8.5-10.1) L 04/13/18 00:25 Total Bilirubin 0.3 mg/dL (0.2-1.0) 04/13/18 00:25 AST 44 U/L (15-37) H 04/13/18 00:25 ALT 30 U/L (10-53) 04/13/18 00:25 Alkaline Phosphatase 95 U/L (45-117) 04/13/18 00:25 Troponin I Less than 0.02 ng/mL (0.02-0.05) L 04/13/18 00:25 Total Protein 7.2 g/dL (6.4-8.2) 04/13/18 00:25 Albumin 2.9 g/dL (3.4-5.0) L 04/13/18 00:25 Lipase 93 U/L (73-393) 04/13/18 00:25 Urine Color Yellow (Yellw/Straw) 04/13/18 00:25 Urine Clarity Hazy (Clear) H 04/13/18 00:25 Urine pH 5.0 (5.0-8.5) 04/13/18 00:25 Ur Specific [place] 1.027 (1.002-1.035) 04/13/18 00:25 Urine Protein Negative mg/dL (Neg-Trace) 04/13/18 00:25 Urine Glucose (UA) Negative mg/dL (Negative) 04/13/18 00:25 Urine Ketones Trace mg/dL (Negative) H 04/13/18 00:25 Urine Occult Blood Moderate (Negative) H 04/13/18 00:25 Urine Nitrate Negative (Negative) 04/13/18 00:25 Urine Bilirubin Negative (Negative) 04/13/18 00:25 Urine Urobilinogen 2.0 mg/dL (Less than 2) H 04/13/18 00:25 Ur Leukocyte Esterase Large (Negative) H 04/13/18 00:25 Urine RBC 15 /hpf (0-3) H 04/13/18 00:25 Urine WBC 38 /hpf (0-5) H 04/13/18 00:25 Calcium Oxalate Crystal Occasional /hpf (None) H 04/13/18 00:25 Urine Bacteria Rare /hpf (None) H 04/13/18 00:25 Urine Mucus Few /lpf (Occasional) H 04/13/18 00:25 Micro UA Comment Culture indicated 04/13/18 00:25 Ur Microscopic Review Not Reportable 04/13/18 00:25 Urine Culture Comments Culture indicated 04/13/18 00:25 Impressions Chest X-Ray 04/13/18 00:08 CONCLUSION: Negative examination. Abdomen/Pelvis CT 04/13/18 01:54 CONCLUSION: Gallstone and mild gallbladder wall thickening. Chest CTA 04/13/18 01:54 CONCLUSION: This study is negative for pulmonary embolism. - Imaging Imaging: ITS Impressions Chest X-Ray 04/13/18 00:08 CONCLUSION: Negative examination. Abdomen/Pelvis CT 04/13/18 01:54 CONCLUSION: Gallstone and mild gallbladder wall thickening. Chest CTA 04/13/18 01:54 CONCLUSION: This study is negative for pulmonary embolism. CT scan - abdomen: report reviewed, image reviewed Assessment and Plan - Assessment (1) Symptomatic cholelithiasis Code(s): K80.20 - Calculus of gallbladder without cholecystitis without obstruction Status: Acute Plan: 27 year old female 5 weeks s/p ; RUQ tenderness, gallstones -Will plan for lap pau this afternoon depending on OR schedule -NPO -Obtain consents -IVF -Explained procedure in detail including risks and benefits -All questions answered -Discussed with RN as well Discussed risks, benefits, alternatives and convalescence with patient; she may continue to nurse baby after surgery. For surgery today The exam, history, and the medical decision-making described in the above note were completed with the assistance of the mid-level provider. I reviewed and agree with the findings presented. I attest that I had a [id number] encounter with the patient on the same day, and personally performed and documented my assessment and findings in the medical record.
[2018-04-13] MEDS: Piperacil/Tazo 3.375 GM Premix 50 ML IV.SIG SCH ×2 (11:31→18:00)
[2018-04-13] MEDS ORDERED: Bupivacaine/Epinephrine Inj 0.25% 50 ML Vial ONE (13:07)
--- NOTE | 2018-04-13 13:28 | US ---
EXAM DATE: 04/13/2018 1:22 PM EDT AGE/SEX: 27 years / Female INDICATIONS: Bilateral leg swelling. CLINICAL DATA: This is the patient's initial encounter. Patient reports that signs and symptoms have been present for 4 - 6 days and indicates a pain score of 2/10. MEDICAL/SURGICAL HISTORY: . Bilateral leg swelling. section. COMPARISON: No prior exams available for comparison. TECHNIQUE: Venous ultrasound of both lower extremities was performed from the inguinal ligament to t he proximal calf. Real-time, color Doppler and spectral tracing, compression and augmentation techni ques were used. FINDINGS: Right Leg: Normal compression of the deep venous system from the inguinal region to the proximal concepcion f. No echogenic clot is seen. Normal response of the venous system to augmentation and respiration. Left Leg: Normal compression of the deep venous system from the inguinal region to the proximal calf . No echogenic clot is seen. Normal response of the venous system to augmentation and respiration. Other: None. CONCLUSION: 1. The study is negative for bilateral lower extremity deep venous thrombosis. Electronically signed by: Vlad Xavier MD 04/13/2018 1:27 PM EDT
[2018-04-13] MEDS ORDERED: Metoprolol Tartrate 25 MG Tablet PO ONE (14:16)
[2018-04-13] MEDS ORDERED: Chlorhexidine Gluconate 2% 1 Pack (2 Cloths) TOPICAL ONE (14:16)
[2018-04-13] MEDS ORDERED: Sodium Chlor 0.9% Inj 500 ML IV.SIG SCH (15:00)
[2018-04-13] MEDS ORDERED: fentaNYL Citrate Inj 250 MCG/5 ML Ampul ONE (17:35)
[2018-04-13] MEDS ORDERED: Glycopyrrolate Inj 1 MG/5 ML Syringe IV.PUSH ONE (17:45)
[2018-04-13] MEDS ORDERED: Succinylcholine Inj 100 MG/5 ML Syringe IV.PUSH ONE (17:45)
[2018-04-13] MEDS ORDERED: Lidocaine PF 1% Inj 5 ML Syringe OTHER ONE (17:45)
[2018-04-13] MEDS ORDERED: Neostigmine Inj 5 MG/5 ML Syringe IV.PUSH ONE (17:45)
[2018-04-13] MEDS ORDERED: Ketorolac Inj 30 MG/ML (IVP) Vial IV.PUSH ONE (17:45)
--- NOTE | 2018-04-13 19:25 | P.OP ---
- Preoperative Diagnosis (1) Symptomatic cholelithiasis - Postoperative Diagnosis (1) Symptomatic cholelithiasis Date of procedure: 04/13/18 Procedure: Laparoscopic cholecystectomy Anesthesia: PUNEET Surgeon: Ori Smith MD Speech Communication Professor: Lashawn Sandhu CFA Estimated blood loss (mL): 10 IV fluids (mL): 1,000 Pathology: other (Gallbladder and contents to pathology) Operation and Findings: Patient was taken to the operating room and placed on the operating table in the supine position. After an adequate level of general endotracheal anesthesia was achieved the abdomen was prepped and draped in the usual fashion. Time-out was taken, confirming the correct patient, site, and procedure to be performed. Skin and subcutaneous tissue was infiltrated with local anesthetic and an incision made in the umbilicus and carried through the fascia sharply. The peritoneal cavity was directly visualized. A 12 mm balloon trocar was inserted and the balloon inflated. The abdomen was insufflated. The patient was placed in reverse Trendelenburg position. Three 5 mm trocars were placed, with the first to the right of the falciform ligament, and the second and third in the right subcostal region. All entered the abdominal cavity under direct vision uneventfully. The fundus of the gallbladder was then grasped and retracted up and over the dome of the liver. The cystic duct-infundibular junction and cystic artery were both circumferentially dissected. The cystic duct was doubly clipped distally, singly clipped on the gallbladder side, and divided. Cystic artery was doubly clipped proximally, singly clipped on the gallbladder side, and divided. The gallbladder was then dissected off the liver bed with electrodissection. The gallbladder was entered at one point and bile was quickly suctioned. The gallbladder was placed into an Endo Catch device and removed via the umbilical port while observing via the upper 5 mm trocar site. Specimen was passed off the table. The upper abdomen was revisualized. The cystic artery stump, the cystic duct stump, and the liver bed were all seen to be clean and dry. Insufflation was discontinued and the upper abdominal trocars removed under direct vision. No bleeding was noted from the trocar sites. The laparoscope and umbilical port were then removed. The fascia was closed in the umbilicus with 0 Vicryl in a simple interrupted and [id number] fashion. The remaining local anesthetic was injected into each of the trocar sites. The skin was closed at each of the trocar sites with 4-0 Vicryl in an interrupted buried fashion. All trocar sites were dressed with Steri-Strips. The patient was extubated and taken back to the recovery room in stable condition. Sponge and needle counts were reported to be correct. She tolerated the procedure well.
[2018-04-13] MEDS ORDERED: *morphine SULFATE 4 MG/ML PERIprocedure ONLY ONE (19:33)
--- NOTE | 2018-04-13 20:17 | P.HPIM ---
History of Present Illness Primary Care Physician: No Primary Care Physician Chief Complaint: abdominal pain History of Present Illness: This patient is a 27-year-old female with no significant past medical history. The patient gave approximately 5 weeks ago and had a . Patient presented to our emergency department today after having 2 days of abdominal pain with radiation to the back and shoulder. The patient was seen in September of this year during her and was diagnosed with symptomatic cholelithiasis. Since the patient was she did not undergo any operation as per the patient's . She denies having any fevers or chills. The pain continued to get worse and she came into our emergency department for evaluation. She denies any chest pain, no shortness of breath, no diarrhea. Inpatient Certification: I certify that the inpatient services were ordered in accordance with Medicare regulations governing the order. This includes certification that hospital inpatient services are reasonable and necessary and in the case of services not specified as inpatient-only under 42 CFR 419.22(n), that they are appropriately provided as inpatient services in accordance to with the 2-midnight benchmark under 43 CFR 412.3(e) Review of Systems All other systems reviewed negative except as stated in HPI PMFSH - History History Provided By: Patient, Family Member - Medical History Medical History: Medical History (Last Reviewed 04/13/18 @ 20:21 by Carrie Romero MD) Patient denies medical problems - Surgical History Surgical History: Surgical History (Last Reviewed 04/13/18 @ 20:21 by Carrie Romero MD) Hx of section - Tobacco History Second Hand Smoke Exposure: No Smoking Status: Never smoker - Alcohol History How Often Do You Have a Drink Containing Alcohol: Never - Substance Use History Substance History: No History of Abuse - Travel History Recent Travel in the [place] Within the Last 8 Weeks: No Recent Travel Out of the Country Within the Last 8 Weeks: No - Immunization History Tetanus Immunization: Unsure Hx Influenza Vaccine This Season: No Medications and Allergies Active Medications: Active Medications Acetaminophen (Tylenol) 650 mg PO Q4H PRN PRN Reason: Temp > 100.4 Hydrocodone Bitart/Acetaminophen ([place] 5/325) 1 tab PO Q4H PRN PRN Reason: PAIN 1-10 Bisacodyl (Dulcolax Supp) 10 mg RECTAL DAILY PRN PRN Reason: SEVERE CONSITIPATION Piperacillin/Tazobactam/Dextrose (Zosyn 3.375 Gm Premix) 50 mls @ 100 mls/hr IV.SIG Q6H [facility] Last Admin: 04/13/18 18:00 Dose: 50 mls/hr Sodium Chloride (Ns Inj) 1,000 mls @ 100 mls/hr IV.CONT .Q10H [facility] Last Admin: 04/13/18 06:49 Dose: 100 mls/hr Lactated Ringer's (Lr 1000 Ml Inj) 1,000 mls @ 30 mls/hr IV.SIG .Q24H [facility] Stop: 04/14/18 14:29 Sodium Chloride (Ns Inj) 500 mls @ 30 mls/hr IV.SIG .Q10H [facility] Miscellaneous Information (Mis Nursing Information) 0 each OTHER UNSCH PRN PRN Reason: SEE LABEL COMMENTS Stop: 04/14/18 19:04 Morphine Sulfate (Morphine Inj) 2 mg IV.PUSH Q3H PRN PRN Reason: pain > 4; IF UNABLE TO TAKE PO Ondansetron HCl (Zofran Inj) 4 mg IV.PUSH Q6H PRN PRN Reason: NAUSEA OR VOMITING Sennosides (Senokot) 17.2 mg PO Q12H PRN PRN Reason: Moderate Constipation Sodium Chloride (Ns Flush) 2 ml IV.FLUSH PRN PRN PRN Reason: FLUSH AFTER USING IV ACCESS Allergies Allergy/AdvReac Type Severity Reaction Status Date / Time No Known Allergies Allergy Verified 04/12/18 23:16 Home Medications Medication Instructions Recorded Confirmed Type No Known Home Medications 04/12/18 04/12/18 History Exam Vital signs: Vital Signs 04/12/18 23:12 04/13/18 00:29 04/13/18 01:04 Temperature 97.8 F Pulse Rate 96 H 81 Respiratory Rate 20 16 16 Blood Pressure 113/63 Pulse Oximetry 100 100 04/13/18 05:44 04/13/18 08:00 04/13/18 11:51 Temperature 97.9 F 97.7 F Pulse Rate 84 89 57 L Respiratory Rate 16 16 12 Blood Pressure 118/65 98/59 L 107/73 Pulse Oximetry 99 99 100 04/13/18 13:47 04/13/18 19:00 04/13/18 19:15 Temperature 97.8 F Pulse Rate 86 73 Respiratory Rate 18 18 17 Blood Pressure 128/68 122/72 Pulse Oximetry 98 Intake & Output 04/13/18 04/13/18 04/14/18 06:59 18:59 06:59 Intake Total 1100 / 1100 1150 / 1150 Output Total 5 / 5 Balance 1100 / 1100 1145 / 1145 Weight 90 kg Intake: IV 1100 / 1100 150 / 150 NS Inj 1,000 ML @ 125 mls/hr IV 1000 / 1000 .CONT .Q8H [facility] Rx#:[id number] Zosyn 3.375 GM Premix 50 ML @ 50 / 50 100 mls/hr IV.SIG Q6H [facility] Rx#: [id number] Zosyn 4.5 GM Premix 4.5 gm In 100 / 100 100 ml @ 200 mls/hr IV.SIG ONCE ONE Rx#:[id number] Rocephin Inj 1,000 MG In NS Inj 100 / 100 100 ML @ 200 mls/hr IV.SIG ONCE ONE Rx#:[id number] Anesthesia Amount 1000 / 1000 Output: Estimated Blood Loss 5 / 5 Narrative: General patient is complaining of right upper quadrant pain HEENT extraocular movements are intact, clear oropharyngeal mucosa, no JVD Cardiovascular S1-S2 audible, RRR, no murmurs rubs or gallops Respiratory clear to auscultation bilaterally Abdomen soft, complains of pain in the right upper quadrant Extremities no edema 2+ distal pulses in bilateral upper and lower extremities Neuro no neuro deficits Results - Labs CBC & Chem 7: 04/13/18 00:25 04/13/18 00:25 Labs: Short CBC 04/13/18 Range/Units 00:25 WBC 7.1 (4.0-11.0) th/mm3 Hgb 10.9 L (11.6-15.3) gm/dL Hct 33.3 L (35.0-46.0) % Plt Count 281 (150-450) th/mm3 BMP 04/13/18 00:25 Sodium 141 Potassium 4.0 Chloride 106 Carbon Dioxide 26.4 BUN 15 Creatinine 0.79 Calcium 8.3 L Cardiac Enzymes 04/13/18 Range/Units 00:25 Troponin I Less than 0.02 L (0.02-0.05) ng/mL Liver Function 04/13/18 Range/Units 00:25 Total Bilirubin 0.3 (0.2-1.0) mg/dL AST 44 H (15-37) U/L ALT 30 (10-53) U/L Alkaline Phosphatase 95 (45-117) U/L Albumin 2.9 L (3.4-5.0) g/dL Urine 04/13/18 Range/Units 00:25 Urine Color Yellow (Yellw/Straw) Urine Clarity Hazy H (Clear) Urine pH 5.0 (5.0-8.5) Ur Specific Justice 1.027 (1.002-1.035) Urine Protein Negative (Neg-Trace) mg/dL Urine Glucose (UA) Negative (Negative) mg/dL - Imaging Impressions Chest X-Ray 04/13/18 00:08 CONCLUSION: Negative examination. Abdomen/Pelvis CT 04/13/18 01:54 CONCLUSION: Gallstone and mild gallbladder wall thickening. Chest CTA 04/13/18 01:54 CONCLUSION: This study is negative for pulmonary embolism. Venous Doppler Study 04/13/18 12:22 CONCLUSION: 1. The study is negative for bilateral lower extremity deep venous thrombosis. Caprini VTE Risk Assessment Caprini VTE Risk Assessment: No/Low Risk (score <= 1) VTE Pharmacological Exception Reason: Hemorrhage Caprini Risk Assessment Model: Point Value = 1 Point Value = 2 Point Value = 3 Point Value = 5 Age 41-60 Minor surgery BMI > 25 kg/m2 Swollen legs Varicose veins or History of unexplained or recurrent spontaneous Oral contraceptives or hormone replacement Sepsis (< 1 month) Serious lung disease, including pneumonia (< 1 month) Abnormal pulmonary function Acute myocardial infarction Congestive heart failure (< 1 month) History of inflammatory bowel disease Medical patient at bed rest Age 61-74 Arthroscopic surgery Major open surgery (> 45 min) Laparoscopic surgery (> 45 min) Malignancy Confined to bed (> 72 hours) Immobilizing plaster cast Central venous access Age >= 75 History of VTE Family history of VTE Factor V Leiden Prothrombin [id number] Lupus anticoagulant Anticardiolipin antibodies Elevated serum homocysteine Heparin-induced thrombocytopenia Other congenital or acquired thrombophilia Stroke (< 1 month) Elective arthroplasty Hip, pelvis, or leg fracture Acute spinal cord injury (< 1 month) Prophylaxis Regimen: Total Risk Factor Score Risk Level Prophylaxis Regimen 0-1 Low Early ambulation 2 Moderate Order ONE of the following: *Sequential Compression Device (SCD) *Heparin 5000 units SQ BID 3-4 Higher Order ONE of the following medications: *Heparin 5000 units SQ TID *Enoxaparin/Lovenox 40 mg SQ daily (WT < 150 kg, CrCl > 30 mL/min) *Enoxaparin/Lovenox 30 mg SQ daily (WT < 150 kg, CrCl > 10-29 mL/min) *Enoxaparin/Lovenox 30 mg SQ BID (WT < 150 kg, CrCl > 30 mL/min) AND/OR *Sequential Compression Device (SCD) 5 or more Highest Order ONE of the following medications: *Heparin 5000 units SQ TID (Preferred with Epidurals) *Enoxaparin/Lovenox 40 mg SQ daily (WT < 150 kg, CrCl > 30 mL/min) *Enoxaparin/Lovenox 30 mg SQ daily (WT < 150 kg, CrCl > 10-29 mL/min) *Enoxaparin/Lovenox 30 mg SQ BID (WT < 150 kg, CrCl > 30 mL/min) AND *Sequential Compression Device (SCD) Assessment and Plan - Plan This patient is a 27-year-old female with no significant past medical history. The patient gave approximately 5 weeks ago and had a . During the time of she was diagnosed with symptomatic cholelithiasis however did not undergo any surgical procedure since the patient was . The patient was having abdominal pain over the past couple of days with radiation to her shoulder and back. She came into our emergency department today for evaluation. 1. Acute cholecystitis The patient was admitted. She was started on IV fluids and pain medications. A CT scan of the abdomen and pelvis was done which showed findings consistent with acute cholecystitis. She was started on IV antibiotics and the surgical team was consulted to evaluate the patient. Will follow up with requisitions from the surgical team. The patient will likely need a cholecystectomy. No DVT prophylaxis with pharmacotherapy as the patient will likely undergo surgery today. H&P: Quality - VTE Deep Vein Thrombosis/Pulmonary Embolism Present on Admission: No
[2018-04-13] MEDS: Senna/Docusate Sodium 8.6/50 MG Tablet PO SCH (22:06)
[2018-04-14] MEDS: Piperacil/Tazo 3.375 GM Premix 50 ML IV.SIG SCH ×2 (00:50→05:34)
[2018-04-14] MEDS: Sod Chloride 0.9% Inj 1,000 ML IV.CONT SCH ×2 (04:04→05:37)
[2018-04-14 04:20] VITALS: O2SAT 99
[2018-04-14 06:29] LABS: Baso % (Auto) 0.2 % (0.0-2.0); Hematocrit 35.5 % (35.0-46.0); Hemoglobin 11.4 gm/dL (11.6-15.3); Lymph # (Auto) 0.7 th/mm3 (1.0-4.8); Lymph % (Auto) 9.2 % (9.0-44.0); Mean Corpuscular HGB Conc 32.1 % (32.0-36.0); Mean Corpuscular Hemoglobin 27.4 pg (27.0-34.0); Mean Corpuscular Volume 85.2 fL (80.0-100.0); Mean Platelet Volume 8.5 fL (7.0-11.0); Mono # (Auto) 0.1 th/mm3 (0.0-0.9); Neut # (Auto) 6.4 th/mm3 (1.8-7.7); Neut % (Auto) 88.6 % (16.0-70.0); Platelet Count 284 th/mm3 (150-450); Red Blood Count 4.17 mil/mm3 (4.00-5.30); Red Cell Distribution Width 15.1 % (11.6-17.2); White Blood Count 7.3 th/mm3 (4.0-11.0)
[2018-04-14 07:00] LABS: Alanine Aminotransferase 303 U/L (10-53); Albumin 2.6 g/dL (3.4-5.0); Alkaline Phosphatase 182 U/L (45-117); Anion Gap 10 meq/L (5-15); Aspartate Aminotransferase 209 U/L (15-37); Blood Urea Nitrogen 9 mg/dL (7-18); Calcium 8.4 mg/dL (8.5-10.1); Carbon Dioxide 22.5 meq/L (21.0-32.0); Chloride 108 meq/L (98-107); Glomerular Filtration Rate Greater Than 89 mL/min (>89); Glucose,Random 144 mg/dL (74-106); Potassium 4.5 meq/L (3.5-5.1); Sodium 140 meq/L (136-145); Total Protein 6.7 g/dL (6.4-8.2)
[2018-04-14 08:38] VITALS: BP 114/61; PULSE 53; RESP 18; TEMP 98
--- NOTE | 2018-04-14 08:55 | P.PNGS ---
Subjective Interval history: Resting in bed No issues Pain controlled Physical Exam Vital signs: Vital Signs 04/13/18 11:51 04/13/18 13:47 04/13/18 19:00 Temperature 97.7 F 97.8 F Pulse Rate 57 L 86 Respiratory Rate 12 18 18 Blood Pressure 107/73 128/68 Pulse Oximetry 100 98 04/13/18 19:15 04/13/18 19:30 04/13/18 19:45 Temperature Pulse Rate 73 73 74 Respiratory Rate 17 16 16 Blood Pressure 122/72 118/72 115/70 Pulse Oximetry 100 97 98 04/13/18 20:00 04/13/18 20:15 04/13/18 20:25 Temperature 97.7 F 97.6 F Pulse Rate 65 74 79 Respiratory Rate 18 16 16 Blood Pressure 111/65 110/69 111/65 Pulse Oximetry 97 98 04/14/18 00:00 04/14/18 01:46 04/14/18 04:00 Temperature 97.1 F L 97.5 F L Pulse Rate 64 62 Respiratory Rate 19 18 19 Blood Pressure 113/56 L 106/63 Pulse Oximetry 97 99 04/14/18 08:00 Temperature 98.0 F Pulse Rate 53 L Respiratory Rate 18 Blood Pressure 114/61 Pulse Oximetry 99 Intake & Output 04/13/18 04/14/18 04/14/18 18:59 06:59 18:59 Intake Total 2150 / 2150 1650 / 1650 Output Total 5 / 5 600 / 600 Balance 2145 / 2145 1050 / 1050 Weight 90.2 kg Intake: IV 1150 / 1150 1150 / 1150 NS Inj 1,000 ML @ 100 mls/hr IV 1000 / 1000 1000 / 1000 .CONT .Q10H [facility] Rx#:[id number] Zosyn 3.375 GM Premix 50 ML @ 50 / 50 150 / 150 100 mls/hr IV.SIG Q6H [facility] Rx#: [id number] Zosyn 4.5 GM Premix 4.5 gm In 100 / 100 100 ml @ 200 mls/hr IV.SIG ONCE ONE Rx#:[id number] Oral 500 / 500 Anesthesia Amount 1000 / 1000 Output: Urine 600 / 600 Estimated Blood Loss 5 / 5 Narrative: Alert and awake Abd: umbilical lap site has minimal bloody drainage; otherwise other lap sites c /d/i Results - Labs 04/14/18 05:34 04/14/18 05:34 Laboratory Results - last 24 hr 04/14/18 04/14/18 05:34 05:34 WBC 7.3 RBC 4.17 Hgb 11.4 L Hct 35.5 MCV 85.2 MCH 27.4 MCHC 32.1 RDW 15.1 Plt Count 284 MPV 8.5 Neut % (Auto) 88.6 H Lymph % (Auto) 9.2 [place] % (Auto) 2.0 Eos % (Auto) 0.0 Baso % (Auto) 0.2 Neut # (Auto) 6.4 Lymph # (Auto) 0.7 L [place] # (Auto) 0.1 Eos # (Auto) 0.0 Baso # (Auto) 0.0 WBC Differential . Differential Comment Auto diff final Sodium 140 Potassium 4.5 Chloride 108 H Carbon Dioxide 22.5 Anion Gap 10 BUN 9 Creatinine 0.60 Estimated GFR Greater than 89 Random Glucose 144 H Calcium 8.4 L Total Bilirubin 1.0 AST 209 H ALT 303 H Alkaline Phosphatase 182 H Total Protein 6.7 Albumin 2.6 L - Imaging Imaging: ITS Impressions Chest X-Ray 04/13/18 00:08 CONCLUSION: Negative examination. Abdomen/Pelvis CT 04/13/18 01:54 CONCLUSION: Gallstone and mild gallbladder wall thickening. Chest CTA 04/13/18 01:54 CONCLUSION: This study is negative for pulmonary embolism. Venous Doppler Study 04/13/18 12:22 CONCLUSION: 1. The study is negative for bilateral lower extremity deep venous thrombosis. Assessment and Plan - Assessment (1) Symptomatic cholelithiasis Code(s): K80.20 - Calculus of gallbladder without cholecystitis without obstruction Status: Acute Plan: 27 year old female 5 weeks s/p ; RUQ tenderness, gallstones -POD1 lap pau -Tolerating diet -DC IVF -GS clear for DC -Avoid heavy pushing/pulling/lifting -Okay to shower this evening; pat incisions dry No issues, relatively comfortable F/U my office one week The exam, history, and the medical decision-making described in the above note were completed with the assistance of the mid-level provider. I reviewed and agree with the findings presented. I attest that I had a [id number] encounter with the patient on the same day, and personally performed and documented my assessment and findings in the medical record.
[2018-04-14] MEDS: Senna/Docusate Sodium 8.6/50 MG Tablet PO SCH (09:16)
--- NOTE | 2018-04-14 12:22 | P.DS ---
Date of admission: 04/13/18 06:10 Primary care physician: No Primary Care Physician Brief History from admission: This patient is a 27-year-old female with no significant past medical history. The patient gave approximately 5 weeks ago and had a . Patient presented to our emergency department today after having 2 days of abdominal pain with radiation to the back and shoulder. The patient was seen in September of this year during her and was diagnosed with symptomatic cholelithiasis. Since the patient was she did not undergo any operation as per the patient's . She denies having any fevers or chills. The pain continued to get worse and she came into our emergency department for evaluation. She denies any chest pain, no shortness of breath, no diarrhea. DS: Diagnosis - Discharge Diagnosis (1) Cholecystitis Status: Acute (2) Symptomatic cholelithiasis Status: Acute DS: Medications - Discharge Medications Prescriptions: hydrocodone-acetaminophen 1 tab PO Q4H PRN #18 tab PRN Reason: acute post op pain exception sennosides-docusate sodium [Senna Plus] 1 tab PO BID #30 tab DS: Summary Hospital Course: This patient is a 27-year-old female with no significant past medical history. The patient gave approximately 5 weeks ago and had a . During the time of she was diagnosed with symptomatic cholelithiasis however did not undergo any surgical procedure since the patient was . The patient was having abdominal pain over the past couple of days with radiation to her shoulder and back. She came into our emergency department today for evaluation. 1. Acute cholecystitis The patient was admitted. She was started on IV fluids and pain medications. A CT scan of the abdomen and pelvis was done which showed findings consistent with acute cholecystitis. She was started on IV antibiotics and the surgical team was consulted to evaluate the patient. Will follow up with requisitions from the surgical team. The patient will likely need a cholecystectomy. S/p edwin mai by Dr Smith on 04/13 Imprpved cleared by surgeon for DC to follow up as OP with PCP and consultants - Time Spent with Patient Total time spent providing and/or coordinating discharge services: Greater than 30 minutes - Quality: VTE Deep Vein Thrombosis/Pulmonary Embolism Present on Admission: No Exam Vital signs: Vital Signs 04/13/18 13:47 04/13/18 19:00 04/13/18 19:15 Temperature 97.8 F Pulse Rate 86 73 Respiratory Rate 18 18 17 Blood Pressure 128/68 122/72 Pulse Oximetry 98 100 04/13/18 19:30 04/13/18 19:45 04/13/18 20:00 Temperature 97.7 F Pulse Rate 73 74 65 Respiratory Rate 16 16 18 Blood Pressure 118/72 115/70 111/65 Pulse Oximetry 97 98 97 04/13/18 20:15 04/13/18 20:25 04/14/18 00:00 Temperature 97.6 F 97.1 F L Pulse Rate 74 79 64 Respiratory Rate 16 16 19 Blood Pressure 110/69 111/65 113/56 L Pulse Oximetry 98 97 04/14/18 01:46 04/14/18 04:00 04/14/18 08:00 Temperature 97.5 F L 98.0 F Pulse Rate 62 53 L Respiratory Rate 18 19 18 Blood Pressure 106/63 114/61 Pulse Oximetry 99 99 Intake & Output 04/13/18 04/14/18 04/14/18 18:59 06:59 18:59 Intake Total 2150 / 2150 1650 / 1650 Output Total 5 / 5 600 / 600 Balance 2145 / 2145 1050 / 1050 Weight 90.2 kg Intake: IV 1150 / 1150 1150 / 1150 NS Inj 1,000 ML @ 100 mls/hr IV 1000 / 1000 1000 / 1000 .CONT .Q10H [facility] Rx#:[id number] Zosyn 3.375 GM Premix 50 ML @ 50 / 50 150 / 150 100 mls/hr IV.SIG Q6H [facility] Rx#: [id number] Zosyn 4.5 GM Premix 4.5 gm In 100 / 100 100 ml @ 200 mls/hr IV.SIG ONCE ONE Rx#:[id number] Oral 500 / 500 Anesthesia Amount 1000 / 1000 Output: Urine 600 / 600 Estimated Blood Loss 5 / 5 Narrative: General patient is complaining of right upper quadrant pain HEENT extraocular movements are intact, clear oropharyngeal mucosa, no JVD Cardiovascular S1-S2 audible, RRR, no murmurs rubs or gallops Respiratory clear to auscultation bilaterally Abdomen soft, complains of pain in the right upper quadrant Extremities no edema 2+ distal pulses in bilateral upper and lower extremities Neuro no neuro deficits Results Procedures completed during hospitalization: s/p lap pau by Dr Smith Pending studies at discharge: Pending at discharge 04/13/18 07:47 Surgical [PTH] Routine Labs on day of discharge: Labs from last 24 hours 04/14/18 04/14/18 05:34 05:34 WBC 7.3 RBC 4.17 Hgb 11.4 L Hct 35.5 MCV 85.2 MCH 27.4 MCHC 32.1 RDW 15.1 Plt Count 284 MPV 8.5 Neut % (Auto) 88.6 H Lymph % (Auto) 9.2 [place] % (Auto) 2.0 Eos % (Auto) 0.0 Baso % (Auto) 0.2 Neut # (Auto) 6.4 Lymph # (Auto) 0.7 L [place] # (Auto) 0.1 Eos # (Auto) 0.0 Baso # (Auto) 0.0 WBC Differential . Differential Comment Auto diff final Sodium 140 Potassium 4.5 Chloride 108 H Carbon Dioxide 22.5 Anion Gap 10 BUN 9 Creatinine 0.60 Estimated GFR Greater than 89 Random Glucose 144 H Calcium 8.4 L Total Bilirubin 1.0 AST 209 H ALT 303 H Alkaline Phosphatase 182 H Total Protein 6.7 Albumin 2.6 L - Impressions ITS Impressions Chest X-Ray 04/13/18 00:08 CONCLUSION: Negative examination. Abdomen/Pelvis CT 04/13/18 01:54 CONCLUSION: Gallstone and mild gallbladder wall thickening. Chest CTA 04/13/18 01:54 CONCLUSION: This study is negative for pulmonary embolism. Venous Doppler Study 04/13/18 12:22 CONCLUSION: 1. The study is negative for bilateral lower extremity deep venous thrombosis. Discharge Plan - Discharge Disposition Patient Disposition: Discharge Home - Discharge Condition Condition: Stable - Discharge Order Discharge Orders: Discharge Order (Routine); Ordered 04/14/18 Ordered By: Rachel Meredith - Discharge Details Anticipated Discharge Date: 04/14/18 - Physicians Team Primary Care Provider: Primary Care [place],No Attending Provider: Rachel Meredith Other Providers: Ori Smith MD
== END 2018-04-14 13:55 | disposition home or self-care (01) ==
LOC: NEPC 23:06 → INTOOBSV 04-13 06:10 → NEDA 04-13 06:10 → NEPHCDU 04-13 08:00 → N07 04-13 14:54
PROVIDERS: ADMIT Hospitalist; ATTEND Hospitalist
DX: Z98.891 History of uterine scar from previous surgery; K80.00 Calculus of gallbladder with acute cholecystitis without obstruction